=== PATIENT | male | born 1955 | race Caucasian/White ===

== ENCOUNTER 2018-09-05 06:45 | Emergency (ER) | payer OTHER ==
[2018-09-05] MEDS ORDERED: ONDANSETRON 4 MG/2 ML VIAL ONE ×2 (07:20→08:57)
[2018-09-05] MEDS ORDERED: NA CHLORIDE 0.9% 1,000 ML ONE ×2 (07:20→08:53)
[2018-09-05 07:58] LABS: Albumin 3.2 g/dL (3.4-5.0); Bilirubin Total 0.6 mg/dL (0.2-1.0); Potassium 5.2 mmol/L (3.5-5.1); Protein, Total 6.9 g/dL (6.4-8.2)
[2018-09-05 11:13] LABS: Albumin 2.9 g/dL (3.4-5.0); Bilirubin Total 0.4 mg/dL (0.2-1.0); Potassium 4.9 mmol/L (3.5-5.1); Protein, Total 6.5 g/dL (6.4-8.2)
--- NOTE | 2018-09-05 11:33 | ER ---
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 Transition of care: patient was not received from another setting of care. Onset of symptoms was September 05, 2018. Risk Assessment: Do you want to hurt yourself or someone else? Patient reports no desire to harm self or others. Initial Sepsis Screen: Does the patient meet any 2 criteria? No. Patient's initial sepsis screen is negative. Does the patient have a suspected source of infection? No. Patient's initial sepsis screen is negative. Care prior to arrival: None. 06:59 Method Of Arrival: Ambulatory bb 06:59 Acuity: ILEANA 3 bb 07:10 Note states pt has a urethral stricture and self-caths once a day. bb Historical: - Allergies: 07:05 No Known Allergies; bb - Home Meds: 07:05 mirtazapine 15 mg Oral TbDL 1 tab once daily [Active]; baclofen 10 mg Oral tab bb [Active]; lorazepam 0.5 mg Oral tab 1 tab [Active]; medrol dose pack [Active]; carvedilol 12.5 mg oral tab 1 tab 2 times per day [Active]; nitrofurantoin macrocrystal 50 mg Oral cap 1 cap once daily [Active]; Zofran (as hydrochloride) 4 mg oral tab [Active]; cranberry 500 mg oral cap [Active]; D-3 2000 IU daily [Active]; chemo [Active]; - PMHx: 07:05 head and neck cancer; bb - Immunization history:: Adult Immunizations up to date. - Social history:: Smoking status: Patient/guardian denies using tobacco, Patient/guardian denies using alcohol, street drugs, The patient lives with family. - Ebola Screening: : No symptoms or risks identified at this time. - Family history:: not pertinent. Screenin:10 Abuse screen: Denies threats or abuse. Nutritional screening: No deficits noted. em Tuberculosis screening: No symptoms or risk factors identified. Fall Risk None identified. Assessment: 07:07 General: Appears in no apparent distress. 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 Pain: Denies pain. Neuro: Level of Consciousness is awake, alert, obeys commands, Oriented to person, place, time, situation. Cardiovascular: Capillary refill < 3 seconds Patient's skin is warm and dry. Respiratory: Airway is patent Respiratory effort is even, unlabored, Respiratory pattern is regular, symmetrical, Breath sounds are clear bilaterally. GI: Abdomen is flat, Reports nausea, Patient currently denies vomiting. : Reports "straight caths self for past 30 years". EENT: Oral mucosa is moist. Throat is clear is pink. Derm: Skin is intact, Skin is pink, warm \\T\\ dry. Musculoskeletal: Range of motion: intact in all extremities. 07:07 Reassessment: I agree with assessment completed by Kin Gonzales LVN . aa5 09:12 Reassessment: Patient appears in no apparent distress at this time. Patient and/or em family updated on plan of care and expected duration. Pain level reassessed. Patient is alert, oriented x 3, equal unlabored respirations, skin warm/dry/pink. pending completion of 2nd NS bolus, will redraw labs Patient denies pain at this time. 10:59 Reassessment: Patient appears in no apparent distress at this time. Patient and/or em family updated on plan of care and expected duration. Pain level reassessed. Patient is alert, oriented x 3, equal unlabored respirations, skin warm/dry/pink. pending repeat labs, nausea improved Patient denies pain at this time. Patient states feeling better. 11:44 Reassessment: Patient appears in no apparent distress at this time. Patient and/or em family updated on plan of care and expected duration. Pain level reassessed. Patient is alert, oriented x 3, equal unlabored respirations, skin warm/dry/pink. Vital Signs: 07:05 BP 141 / 81; Pulse 60; Resp 16 S; Temp 98.2(O); Pulse Ox 97% on R/A; Weight 108.86 kg bb (R); Height 6 ft. 1 in. (185.42 cm) (R); Pain 0/10; 08:00 BP 132 / 79; Pulse 57; Resp 18; Pulse Ox 97% on R/A; Pain 0/10; em 09:14 BP 143 / 84; Pulse 58; Resp 18; Pulse Ox 99% on R/A; em 11:00 BP 138 / 80; Pulse 64; Resp 18; Pulse Ox 99% on R/A; Pain 0/10; em 11:45 BP 141 / 82; Pulse 61; Resp 18; Pulse Ox 99% on R/A; Pain 0/10; em 07:05 Body Mass Index 31.66 (108.86 kg, 185.42 cm) bb ED Course: 06:48 Patient arrived in ED. es 06:48 Basim Alexander DO is Private Physician. es 06:51 Filiberto Dumont, SURINDER is Primary Nurse. jb4 07:01 Triage completed. bb 07:02 Donald Cohen MD is Attending Physician. ma2 07:03 Kin Gonzales LVN is Primary Nurse. em 07:05 Arm band placed on Patient placed in an exam room, on a stretcher, on pulse oximetry. bb Family accompanied patient. 07:10 Patient has correct armband on for positive identification. Placed in gown. Call light em in reach. Adult w/ patient. 07:35 No provider procedures requiring assistance completed. Initial lab(s) drawn, by me, em sent to lab. Inserted saline lock: 20 gauge in left antecubital area, using aseptic technique. Blood collected. 11:44 IV discontinued, intact, bleeding controlled, No redness/swelling at site. Pressure em dressing applied. Administered Medications: 07:33 Drug: Zofran 4 mg Route: IVP; Site: left antecubital; aa5 08:47 Follow up: Response: No adverse reaction; Nausea unchanged em 07:34 Drug: NS 0.9% 1000 ml Route: IV; Rate: 1 bolus; Site: left antecubital; em 08:47 Follow up: IV Status: Completed infusion; IV Intake: 1000ml em 08:58 Drug: NS 0.9% 1000 ml Route: IV; Rate: 1 bolus; Site: left antecubital; em 10:48 Follow up: IV Status: Completed infusion; IV Intake: 1000ml em 08:58 Drug: Zofran 4 mg Route: IVP; Site: left antecubital; em 11:11 Follow up: Response: No adverse reaction; Nausea is decreased em Intake: 08:47 IV: 1000ml; Total: 1000ml. em 10:48 IV: 1000ml; Total: 2000ml. em Outcome: 11:32 Discharge ordered by . [email or web address] 11:44 Discharged to home ambulatory, with family. em 11:44 Condition: good 11:44 Discharge instructions given to patient, family, Instructed on discharge instructions, follow up and referral plans. Demonstrated understanding of instructions, follow-up care. 11:53 Patient left the ED. em Signatures: Eleni Buenrostro Edgar, PROFESSOR OF GERMAN PROFESSOR OF GERMAN em Stephenie Dejesus RN RN bb Toma Aguilar RN RN aa5 Filiberto Dumont RN RN jb4 Donald Cohen MD MD ma2
--- NOTE | 2018-09-05 11:33 | EDPHYS ---
Physician Documentation [facility] Name: Isai Becker Age: 62 yrs Sex: Male : 1955 Arrival Date: 09/05/2018 Time: 06:48 Bed 17 Private MD: Basim Alexander ED Physician Donald Cohen HPI: 09/05 07:08 This 62 yrs old Male presents to ER via Ambulatory with complaints of Cancer ma2 patient. 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 gets IVF after radiation every ma2 time.. today they did radiation but send him here for ivf and createnine check as mo MD available, thanks.. he has no symptoms.. tonsillar cancer x 1 year constant unchanged moderate . Onset: The symptoms/episode began/occurred gradually, 6 day(s) ago. Severity of symptoms: At their worst the symptoms were mild in the emergency department the symptoms are unchanged. Historical: - Allergies: 07:05 No Known Allergies; bb - Home Meds: 07:05 mirtazapine 15 mg Oral TbDL 1 tab once daily [Active]; baclofen 10 mg Oral tab bb [Active]; lorazepam 0.5 mg Oral tab 1 tab [Active]; medrol dose pack [Active]; carvedilol 12.5 mg oral tab 1 tab 2 times per day [Active]; nitrofurantoin macrocrystal 50 mg Oral cap 1 cap once daily [Active]; Zofran (as hydrochloride) 4 mg oral tab [Active]; cranberry 500 mg oral cap [Active]; D-3 2000 IU daily [Active]; chemo [Active]; - PMHx: 07:05 head and neck cancer; bb - Immunization history:: Adult Immunizations up to date. - Social history:: Smoking status: Patient/guardian denies using tobacco, Patient/guardian denies using alcohol, street drugs, The patient lives with family. - Ebola Screening: : No symptoms or risks identified at this time. - Family history:: not pertinent. ROS: 07:08 Constitutional: Negative for fever, chills, and weight loss, Cardiovascular: Negative ma2 for chest pain, palpitations, and edema, Respiratory: Negative for shortness of breath, cough, wheezing, and pleuritic chest pain, Abdomen/GI: Negative for abdominal pain, nausea, diarrhea, and constipation, Back: Negative for injury and pain, Allergy/Immunology: Negative for hives, rash, and allergies, Endocrine: Negative for neck swelling, polydipsia, polyuria, polyphagia, and marked weight changes. 07:08 All other systems are negative. Exam: 07:08 Constitutional: This is a well developed, well nourished patient who is awake, alert, ma2 and in no acute distress. Chest/axilla: Normal chest wall appearance and motion. Nontender with no deformity. No lesions are appreciated. Cardiovascular: Regular rate and rhythm with a normal S1 and S2. No gallops, murmurs, or rubs. Normal PMI, no JVD. No pulse deficits. Respiratory: Lungs have equal breath sounds bilaterally, clear to auscultation and percussion. No rales, rhonchi or wheezes noted. No increased work of breathing, no retractions or nasal flaring. Abdomen/GI: Soft, non-tender, with normal bowel sounds. No distension or tympany. No guarding or rebound. No evidence of tenderness throughout. MS/ Extremity: Pulses equal, no cyanosis. Neurovascular intact. Full, normal range of motion. 07:08 Head/Face: Normocephalic, atraumatic. ma2 Vital Signs: 07:05 BP 141 / 81; Pulse 60; Resp 16 S; Temp 98.2(O); Pulse Ox 97% on R/A; Weight 108.86 kg bb (R); Height 6 ft. 1 in. (185.42 cm) (R); Pain 0/10; 08:00 BP 132 / 79; Pulse 57; Resp 18; Pulse Ox 97% on R/A; Pain 0/10; em 09:14 BP 143 / 84; Pulse 58; Resp 18; Pulse Ox 99% on R/A; em 11:00 BP 138 / 80; Pulse 64; Resp 18; Pulse Ox 99% on R/A; Pain 0/10; em 11:45 BP 141 / 82; Pulse 61; Resp 18; Pulse Ox 99% on R/A; Pain 0/10; em 07:05 Body Mass Index 31.66 (108.86 kg, 185.42 cm) MDM: 07:02 Patient medically screened. ma2 07:08 Differential Diagnosis dehydration, pain, luisana, electrolyte disturbance . ma2 11:26 Data reviewed: vital signs, nurses notes. Counseling: I had a detailed discussion with [facility] the patient and/or guardian regarding: the historical points, exam findings, and any diagnostic results supporting the discharge/admit diagnosis, the presence of at least one elevated blood pressure reading (>120/80) during this emergency department visit, the need for outpatient follow up. 11:30 Response to treatment: the patient's symptoms have markedly improved after treatment. [facility] 09/05 07:07 Order name: CMP; Complete Time: 08:25 [facility] 09/05 08:51 Order name: CMP: at 10 am please; Complete Time: 11:15 [facility] Administered Medications: 07:33 Drug: Zofran 4 mg Route: IVP; Site: left antecubital; aa5 08:47 Follow up: Response: No adverse reaction; Nausea unchanged em 07:34 Drug: NS 0.9% 1000 ml Route: IV; Rate: 1 bolus; Site: left antecubital; em 08:47 Follow up: IV Status: Completed infusion; IV Intake: 1000ml em 08:58 Drug: NS 0.9% 1000 ml Route: IV; Rate: 1 bolus; Site: left antecubital; em 10:48 Follow up: IV Status: Completed infusion; IV Intake: 1000ml em 08:58 Drug: Zofran 4 mg Route: IVP; Site: left antecubital; em 11:11 Follow up: Response: No adverse reaction; Nausea is decreased em Disposition: 09/05/18 11:32 Discharged to Home. Impression: Dehydration. - Condition is Stable. - Discharge Instructions: Dehydration, Adult. - Medication Reconciliation Form, Thank You Letter, Antibiotic Education, Prescription Opioid Use form. - Follow up: Private Physician; When: Tomorrow; Reason: Continuance of care. Signatures: Dispatcher [employer] EDKin Anders, DRAWING IN MACHINE TENDER DRAWING IN MACHINE TENDER Stephenie Eubanks RN RN Toma Keating RN RN aa5 Donald Cohen MD MD wa2 Corrections: (The following items were deleted from the chart) 11:53 11:32 09/05/2018 11:32 Discharged to Home. Impression: Dehydration. Condition is em Stable. Forms are Medication Reconciliation Form, Thank You Letter, Antibiotic Education, Prescription Opioid Use. Follow up: Private Physician; When: Tomorrow; Reason: Continuance of care. ma2
== END 2018-09-05 11:53 | disposition home or self-care (01) ==
LOC: ER 06:45
DX: E86.0 Dehydration (principal); C09.9 Malignant neoplasm of tonsil, unspecified; Z85.89 Personal history of malignant neoplasm of other organs and systems
CPT/HCPCS: 36415; 80053; 96361; 96374; 99284; J2405; J7030

== ENCOUNTER 2018-09-06 07:46 | Emergency (ER) | payer OTHER ==
[2018-09-06] MEDS ORDERED: NA CHLORIDE 0.9% 1,000 ML ONE ×2 (08:34→09:26)
[2018-09-06 08:49] LABS: Absolute Lymphocytes (CBC) 0.4 K/uL (0.7-4.9); Absolute Monocytes 1.4 K/uL (0.1-1.3); Absolute Neutrophil 11.6 K/uL (1.8-8.0); Basophils % 0.1 % (0-1.3); Hematocrit 31.7 % (39.6-49.0); MCH 30.6 pg (27.0-35.0); MCV 91.1 fL (80-100); Monocytes % 10.3 % (3.3-12.3); RBC Red Blood Cell Count 3.48 M/uL (4.33-5.43)
[2018-09-06 09:33] LABS: Blood Morphology Comment NOT SEEN (NOT SEEN); Platelet Estimate DECR
[2018-09-06] MEDS ORDERED: ONDANSETRON 4 MG/2 ML VIAL ONE (10:26)
--- NOTE | 2018-09-06 10:38 | EDPHYS ---
Physician Documentation [facility] Name: Isai Becker Age: 63 yrs Sex: Male : 1955 Arrival Date: 09/06/2018 Time: 07:49 Bed 18 Private MD: Basim Alexander ED Physician Jeremie Wilson HPI: 09/06 09:38 This 63 yrs old Male presents to ER via Ambulatory with complaints of Lab jr8 Work. 09:38 Patient currently undergoing radiation and chemotherapy for tonsilar and basal tongue jr8 cancer. Had first round of chemo the other day. Was sent to ED yesterday for dehydration by PCP secondary to the chemo. Was told to come back today for another round of fluids. Denies any other problems at this time . Severity of symptoms: At their worst the symptoms were moderate in the emergency department the symptoms are unchanged. The patient has not experienced similar symptoms in the past. The patient has been recently seen by a physician:. Historical: - Allergies: 08:36 No Known Allergies; em - Home Meds: 08:04 baclofen 10 mg Oral tab [Active]; carvedilol 12.5 mg Oral tab 1 tab 2 times per day em [Active]; chemo [Active]; cranberry 500 mg Oral cap [Active]; D-3 2000 IU daily [Active]; lorazepam 0.5 mg Oral tab 1 tab [Active]; MEDROL DOSE PACK [Active]; mirtazapine 15 mg Oral TbDL 1 tab once daily [Active]; nitrofurantoin macrocrystal 50 mg Oral cap 1 cap once daily [Active]; Zofran (as hydrochloride) 4 mg Oral tab [Active]; - PMHx: 08:04 head and neck cancer; em - Immunization history:: Adult Immunizations up to date. - Social history:: Smoking status: Patient/guardian denies using tobacco. - Ebola Screening: : Patient negative for fever greater than or equal to 101.5 degrees Fahrenheit, and additional compatible Ebola Virus Disease symptoms Patient denies exposure to infectious person Patient denies travel to an Ebola-affected area in the 21 days before illness onset No symptoms or risks identified at this time. ROS: 09:38 Eyes: Negative for injury, pain, redness, and discharge, ENT: Negative for injury, jr8 pain, and discharge, Neck: Negative for injury, pain, and swelling, Cardiovascular: Negative for chest pain, palpitations, and edema, Respiratory: Negative for shortness of breath, cough, wheezing, and pleuritic chest pain, Abdomen/GI: Negative for abdominal pain, nausea, vomiting, diarrhea, and constipation, Back: Negative for injury and pain, MS/Extremity: Negative for injury and deformity, Skin: Negative for injury, rash, and discoloration, Neuro: Negative for headache, weakness, numbness, tingling, and seizure. Exam: 09:38 Eyes: Pupils equal round and reactive to light, extra-ocular motions intact. Lids and jr8 lashes normal. Conjunctiva and sclera are non-icteric and not injected. Cornea within normal limits. Periorbital areas with no swelling, redness, or edema. ENT: Nares patent. No nasal discharge, no septal abnormalities noted. Tympanic membranes are normal and external auditory canals are clear. Oropharynx with no redness, swelling, or masses, exudates, or evidence of obstruction, uvula midline. Mucous membranes moist. Neck: Trachea midline, no thyromegaly or masses palpated, and no cervical lymphadenopathy. Supple, full range of motion without nuchal rigidity, or vertebral point tenderness. No Meningismus. Cardiovascular: Regular rate and rhythm with a normal S1 and S2. No gallops, murmurs, or rubs. Normal PMI, no JVD. No pulse deficits. Respiratory: Lungs have equal breath sounds bilaterally, clear to auscultation and percussion. No rales, rhonchi or wheezes noted. No increased work of breathing, no retractions or nasal flaring. Abdomen/GI: Soft, non-tender, with normal bowel sounds. No distension or tympany. No guarding or rebound. No evidence of tenderness throughout. Back: No spinal tenderness. No costovertebral tenderness. Full range of motion. Skin: Warm, dry with normal turgor. Normal color with no rashes, no lesions, and no evidence of cellulitis. MS/ Extremity: Pulses equal, no cyanosis. Neurovascular intact. Full, normal range of motion. Neuro: Awake and alert, GCS 15, oriented to person, place, time, and situation. Cranial nerves II-XII grossly intact. Motor strength 5/5 in all extremities. Sensory grossly intact. Cerebellar exam normal. Normal gait. Vital Signs: 08:04 BP 134 / 77; Pulse 65; Resp 18; Pulse Ox 99% on R/A; Pain 0/10; em 08:32 Temp 98.6(O); em 09:30 BP 132 / 74; Pulse 67; Resp 16; Pulse Ox 99% on R/A; em 10:55 BP 131 / 70; Pulse 68; Resp 18; Pulse Ox 99% on R/A; Pain 0/10; em MDM: 07:52 Patient medically screened. jr8 09:38 Data reviewed: vital signs, nurses notes, old medical records, lab test result(s). Data jr8 interpreted: Pulse oximetry: on room air is 99 %. Interpretation: normal. Counseling: I had a detailed discussion with the patient and/or guardian regarding: the historical points, exam findings, and any diagnostic results supporting the discharge/admit diagnosis, lab results, the need for outpatient follow up, a family practitioner, to return to the emergency department if symptoms worsen or persist or if there are any questions or concerns that arise at home. Response to treatment: the patient's symptoms have markedly improved after treatment. ED course: labs improved since yesterday. Will continue to hydrate at home. Sees oncology on Sunday for follow up . 09/06 08:25 Order name: CBC with Diff; Complete Time: 09:37 em 09/06 08:25 Order name: BMP; Complete Time: 09:03 em 09/06 09:34 Order name: Manual Differential; Complete Time: 09:37 EDMS Administered Medications: 08:35 Drug: NS 0.9% 1000 ml Route: IV; Rate: 1 bolus; Site: left antecubital; em 09:20 Follow up: IV Status: Completed infusion; IV Intake: 1000ml em 09:25 Drug: NS 0.9% 1000 ml Route: IV; Rate: 1 bolus; Site: left antecubital; em 10:17 Follow up: IV Status: Completed infusion; IV Intake: 1000ml em 10:20 Drug: Zofran 4 mg Route: IVP; Site: left antecubital; tw2 10:55 Follow up: Response: No adverse reaction; Nausea is decreased em Disposition: 09/06/18 10:37 Discharged to Home. Impression: Dehydration. - Condition is Stable. - Discharge Instructions: Dehydration, Adult. - Medication Reconciliation Form, Thank You Letter, Antibiotic Education, Prescription Opioid Use form. - Follow up: Private Physician; When: 2 - 3 days; Reason: Recheck today's complaints, Continuance of care, Re-evaluation by your physician. - Problem is new. - Symptoms have improved. Addendum: 09/09/2018 08:08 Co-signature as Attending Physician, Jeremie Wilson MD I agree with the assessment and c barger plan of care. Signatures: Dispatcher [employer] Jeremie Watson MD MD cha Munoz, Edgar, CARD HAND CARD HAND em Robert Davidson PA PA jr8 Padma Romeo RN RN tw2 Corrections: (The following items were deleted from the chart) 09/06 10:56 10:37 09/06/2018 10:37 Discharged to Home. Impression: Dehydration. Condition is em Stable. Forms are Medication Reconciliation Form, Thank You Letter, Antibiotic Education, Prescription Opioid Use. Follow up: Private Physician; When: 2 - 3 days; Reason: Recheck today's complaints, Continuance of care, Re-evaluation by your physician. Problem is new. Symptoms have improved. jr8
--- NOTE | 2018-09-06 10:38 | ER ---
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 Transition of care: patient was not received from another setting of care. Onset of symptoms was September 02, 2018. Risk Assessment: Do you want to hurt yourself or someone else? Patient reports no desire to harm self or others. Initial Sepsis Screen: Does the patient meet any 2 criteria? No. Patient's initial sepsis screen is negative. Does the patient have a suspected source of infection? No. Patient's initial sepsis screen is negative. Care prior to arrival: None. 07:58 Method Of Arrival: Ambulatory em 08:06 Acuity: ILEANA 3 ss Triage Assessment: 08:04 General: Appears in no apparent distress. comfortable, Behavior is calm, cooperative. em Pain: Denies pain. Historical: - Allergies: 08:36 No Known Allergies; em - Home Meds: 08:04 baclofen 10 mg Oral tab [Active]; carvedilol 12.5 mg Oral tab 1 tab 2 times per day em [Active]; chemo [Active]; cranberry 500 mg Oral cap [Active]; D-3 2000 IU daily [Active]; lorazepam 0.5 mg Oral tab 1 tab [Active]; MEDROL DOSE PACK [Active]; mirtazapine 15 mg Oral TbDL 1 tab once daily [Active]; nitrofurantoin macrocrystal 50 mg Oral cap 1 cap once daily [Active]; Zofran (as hydrochloride) 4 mg Oral tab [Active]; - PMHx: 08:04 head and neck cancer; em - Immunization history:: Adult Immunizations up to date. - Social history:: Smoking status: Patient/guardian denies using tobacco. - Ebola Screening: : Patient negative for fever greater than or equal to 101.5 degrees Fahrenheit, and additional compatible Ebola Virus Disease symptoms Patient denies exposure to infectious person Patient denies travel to an Ebola-affected area in the 21 days before illness onset No symptoms or risks identified at this time. Screenin:36 Abuse screen: Denies threats or abuse. Nutritional screening: No deficits noted. em Tuberculosis screening: No symptoms or risk factors identified. Fall Risk None identified. Assessment: 08:04 General: Appears in no apparent distress. comfortable, Behavior is calm, cooperative, em Denies fever. Pain: Denies pain. Neuro: Level of Consciousness is awake, alert, obeys commands, Oriented to person, place, time, situation. Cardiovascular: Capillary refill < 3 seconds Patient's skin is warm and dry. Respiratory: Airway is patent Respiratory effort is even, unlabored, Respiratory pattern is regular, symmetrical. GI: Abdomen is flat, PEG tube in place, clamped. to gravity drainage. Site clean. Patient currently denies nausea, vomiting. : No signs and/or symptoms were reported regarding the genitourinary system. EENT: No signs and/or symptoms were reported regarding the EENT system. Derm: Skin is intact, Skin is pink, warm \T\ dry. Musculoskeletal: Range of motion: intact in all extremities. 09:00 Reassessment: Patient appears in no apparent distress at this time. Patient and/or em family updated on plan of care and expected duration. Pain level reassessed. Patient is alert, oriented x 3, equal unlabored respirations, skin warm/dry/pink. 10:15 Reassessment: Patient appears in no apparent distress at this time. Patient and/or em family updated on plan of care and expected duration. Pain level reassessed. Patient is alert, oriented x 3, equal unlabored respirations, skin warm/dry/pink. pr reports being nauseated, provider notified, new medication orders received. Vital Signs: 08:04 BP 134 / 77; Pulse 65; Resp 18; Pulse Ox 99% on R/A; Pain 0/10; em 08:32 Temp 98.6(O); em 09:30 BP 132 / 74; Pulse 67; Resp 16; Pulse Ox 99% on R/A; em 10:55 BP 131 / 70; Pulse 68; Resp 18; Pulse Ox 99% on R/A; Pain 0/10; em ED Course: 07:49 Patient arrived in ED. mr 07:49 Basim Alexander DO is Private Physician. mr 07:52 Robert Davidson PA is PHCP. jr8 07:52 Jeremie Wilson MD is Attending Physician. jr8 07:58 Kin Gonzales LVN is Primary Nurse. em 08:06 Triage completed. ss 08:06 Arm band placed on. ss 08:36 Patient has correct armband on for positive identification. Bed in low position. Call em light in reach. Adult w/ patient. Pulse ox on. NIBP on. 08:36 No provider procedures requiring assistance completed. Initial lab(s) drawn, by me, em sent to lab. Inserted saline lock: 20 gauge in left antecubital area, using aseptic technique. Blood collected. 10:56 IV discontinued, intact, bleeding controlled, No redness/swelling at site. Pressure em dressing applied. Administered Medications: 08:35 Drug: NS 0.9% 1000 ml Route: IV; Rate: 1 bolus; Site: left antecubital; em 09:20 Follow up: IV Status: Completed infusion; IV Intake: 1000ml em 09:25 Drug: NS 0.9% 1000 ml Route: IV; Rate: 1 bolus; Site: left antecubital; em 10:17 Follow up: IV Status: Completed infusion; IV Intake: 1000ml em 10:20 Drug: Zofran 4 mg Route: IVP; Site: left antecubital; tw2 10:55 Follow up: Response: No adverse reaction; Nausea is decreased em Intake: 09:20 IV: 1000ml; Total: 1000ml. em 10:17 IV: 1000ml; Total: 2000ml. em Outcome: 10:37 Discharge ordered by . jr8 10:56 Discharged to home ambulatory, with family. em 10:56 Condition: good 10:56 Discharge instructions given to patient, family, Instructed on discharge instructions, follow up and referral plans. Demonstrated understanding of instructions, follow-up care. 10:56 Patient left the ED. 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
== END 2018-09-06 10:56 | disposition home or self-care (01) ==
LOC: ER 07:46
DX: E86.0 Dehydration (principal); C02.9 Malignant neoplasm of tongue, unspecified; C09.9 Malignant neoplasm of tonsil, unspecified
CPT/HCPCS: 36415; 80048; 85025; 96361; 96374; 99284; J2405; J7030

== ENCOUNTER 2018-09-26 09:27 | Day surgery (SDC) | payer OTHER ==
--- OUTSIDE RECORDS SUMMARY | 2018-09-26 09:30 | XMS REPORT | Continuity of Care Document ---
:1955 Author Organization Interface Problems Problem Status Onset Classification Date Comments Source Date Reported LIVER MASS Active 09/03/20 [place] [id number] [address] ORALPHARNX Active 08/30/20 [facility] SQUAMOUS CELL 18 Medical CARCINOMA Center PEG TUBE Active 08/25/20 [facility] PLACEMENT 18 Medical 08/21/SPITTING Center BLOOD T DYSPHAGIA, Active 08/14/20 [facility] OROPHARYNGEAL Medical PHASE Center Medications Medication Details Route Status Patient Ordering Order Source Instructions Provider Date Allergies, Adverse Reactions, Alerts Substance Category Reaction Severity Reaction Status Date Comments Source type Reported Immunizations Immunization Date Given Site Status Last Updated Comments Source Results Order Results Value Reference Date Interpretation Comments Source Name Range Biopsy Biopsy Patient Name: MILI AGUAYO 09/09 - [facility] liver liver - [place] : 1955; Age: 63 years Male MR: [id number] Read by: Lucero Callaway MD Dictated Date/time: 09/09/18 11:08 Electronically Signed by: Lucero Callaway MD 09/09/18 11:10 FINAL REPORT PROCEDURE: 1. CT-guided biopsy of a liver lesion 2. Moderate sedation CLINICAL INFORMATION: Multiple liver masses, history of tonsillar cancer COMPARISON: Outside abdomen on 08/30/2018 CONSENT: The procedure, risks, benefits and alternatives were discussed with the patient and written informed consent was obtained. A "time out" was performed per protocol prior to the procedure. TECHNIQUE: CT imaging performed at this location utilizes radiation dose optimization techniques which include one or more of the following: -Automated exposure control -Adjustment of the mA and/or kV according to patient size -Use of iterative reconstruction technique -Radiation dose: 1267.62 mGy-cm joy operator helper: Dr. Callaway Preoperative diagnosis: Multiple liver masses, history of tonsillar cancer Postoperative diagnosis: Same Estimated blood loss: Minimal Moderate sedation: I supervised moderate sedation during this procedure. The patient was continuously monitored by a nurse using automated blood pressure , electrocardiogram, and pulse oximetry. [place] [facility] [place] is permanently stored in the hospital information system. The personal supervised moderate sedation time was 10 minutes. Medications administered: Versed 0.5 mg IV and Fentanyl 25 mcg IV. The patient was placed in a supine position on the CT table. Preprocedure CT demonstrated an ill-defined mass within the lateral left hepatic lobe. The right upper abdomen was prepped and draped with st erile technique and the skin was anesthetized with 1% lidocaine. Under CT guidance, a 17-gauge introducer needle was advanced into the lateral left hepatic lobe mass. Subsequently, 6 core biopsies (18-gauge, 2 cm) were obtained of this lesion using a coaxial techniqu e. The samples were sent for histopathology analysis. The needles were removed and sterile dressing applied. Postprocedure imaging demonstrated no immediate complication. Patient tolerated the procedure well and transferred to the PACU in stable condition. IMPRESSION: Successful CT-guided biopsy of a lateral left hepatic lobe mass. SL: [id number] Neck CTA Neck CTA EXAM: CT ANGIOGRAM OF THE NECK 08/[address] DATE: 08/25/2018 4:24 PM RESPIRATORY TECH Read by: Bradley Wilkerson MD Dictated Date/time: 08/25/18 17:05 Electronically Signed by: Bradley Wilkerson MD 08/25/18 17:13 FINAL REPORT INDICATION: - Tonsillar bleed, eval for extravasation COMPARISON: None TECHNIQUE: Rapid acquisition spiral CT images of the neck were obtained between the aortic arch and the skull base during intravenous infusion of iodinated contrast for the purposes of CT angiography. 3-D CT angio graphic images are created using MIP technique at the acquisition workstation. The source images are also presented for interpretation. IV contrast: 50 cc Visipaque 320 DLP: 604 mGy-cm FINDINGS: NECK CTA: Aortic arch: The great vessels originate from the aortic arch in the standard configuration. No origin stenosis is identified. The vertebral artery origins are patent bilaterally. Carotid arteries: There is no evidence of vascular injury. The cervical common carotid arteries and cervical internal carotid arteries have a normal course, caliber, and contour. There are areas of calcification at the carotid bifurcations. No hemodynamically s ignificant stenosis of the carotid bifurcations or internal carotid arteries is present by NASCET criteria. Vertebral arteries: The vertebral arteries have a normal course, caliber and contour. The visible intracranial vessels are unremarkable. The visible intracranial and extracranial venous structures are normal. There is a mass lesion arising from the right base of tongue extending into the glossopharyngeal sulcus, which measures approximately 2.5 x 2.5 x 3 cm. There is no involvement of the preepiglottic fat o r the piriform sinus. The pharyngeal tonsils appear to be unremarkable. The lingual artery courses mostly along the lateral margin of the mass. I do not see any pseudoaneurysm. There is a clearly metastatic lymph node at level 3 on the right measuring 13 mm in transverse diameter. There are other asymmetrically enlarged right level 2A and 2B nodes which likely represent metast atic adenopathy, but only measure 8 mm in diameter. 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 There is evidence of central venous hypertension with dilatation of the jugular veins and of the azygos vein. The lung apices are unremarkable. 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 No pseudoaneurysm or other vascular abnormality identified.. Abdomen Abdomen EXAM: XR ABDOMEN 2 VIEWS 08/25 - [facility] 2 views 2 views /2017 - Medical DX DX This report was dictated by a Pharmacy Buyer/Fellow. I have personally reviewed the images as Center well as the Resident's interpretation and agree with the findings. DATE: 08/25/2018 12:53 PM RESPIRATORY TECH Read by: Williams Lozano MD Resident: Williams Lozano MD Dictated Date/time: 08/25/18 14:07 Electronically Signed by: Clara Early MD 08/25/18 14:22 FINAL REPORT INDICATION: - G-tube study with contrast through G-tube. Pt had bleeding from G-tube site. ADDITIONAL INFORMATION: None. COMPARISON: None. TECHNIQUE: Cross-table lateral and supine abdominal radiographs. Enteric contrast was given via enteric tube. Enteric contrast: 40 mL of Omnipaque 300 FINDINGS: Gastrostomy tube: In expected position. Instillation of contrast reveals intraluminal position without evidence of extravasation. Other tubes, lines and hardware: None. Lower thorax: Unremarkable where visualized. Abdomen and bowel: Normal. No free air. No differential air fluid levels. Calcifications: No abnormal calcifications found. Bones and soft tissues: No acute abnormality. IMPRESSION: 1. Enteric tube in expected position with no contrast extravasation. UT SECTION: ER Vital Signs Vital Sign Value Date Comments Source Encounters Location Location Encounter Encounter Reason Attending ADM DC Status Source Details Type Number For Provider Date Date Visit Procedures Procedure Code Date Perfomer Comments Source
[2018-09-26] MEDS ORDERED: CEFAZOLIN 1GM (PREMIX IV) 1 GM/50 ML BAG ONE (10:13)
[2018-09-26] MEDS ORDERED: Ringers Lactate 1,000 ML IV ONE (10:13)
[2018-09-26 10:33] LABS: Absolute Lymphocytes (CBC) 1.4 K/uL (0.7-4.9); Absolute Monocytes 2.3 K/uL (0.1-1.3); Basophils % 0.4 % (0-1.3); Eosinophils % 0.6 % (0-4.4); Hematocrit 30.9 % (39.6-49.0); Lymphocytes % 13.1 % (15.3-44.8); MPV 8.9 fL (7.6-11.3); Monocytes % 21.2 % (3.3-12.3); RBC Red Blood Cell Count 3.43 M/uL (4.33-5.43)
[2018-09-26] MEDS ORDERED: NS 0.9% VIAL 20 ML ONE (10:58)
[2018-09-26] MEDS ORDERED: HEPARIN 5000 UNIT/ML 1 ML VIAL ONE (10:59)
[2018-09-26] MEDS ORDERED: LIDOCAINE 1% MPF 30 ML VIAL ONE (10:59)
[2018-09-26 11:07] LABS: Blood Morphology Comment NOT SEEN (NOT SEEN); Platelet Estimate ADEQ
[2018-09-26] MEDS ORDERED: FENTANYL CITR 100 MCG/2 ML ONE (11:48)
[2018-09-26] MEDS ORDERED: PROPOFOL 200 MG/20 ML VIAL IV ONE (11:48)
[2018-09-26] MEDS ORDERED: MIDAZOLAM HCL 2 MG/2 ML INJ ONE (11:49)
[2018-09-26] MEDS ORDERED: LIDOCAINE 1% MPF 5 ML VIAL ONE (11:49)
--- NOTE | 2018-09-26 12:53 | RAD REPORT ---
EXAM DESCRIPTION: RAD - Fluoroscopy <1 Hour - 09/26/2018 12:48 pm CLINICAL HISTORY: Venous catheter insertion. PORT A CATH PLACEMENT COMPARISON: No comparisons FINDINGS: Fluoroscopic imaging is submitted from placement of a venous catheter. Details of the pro cedure not available. Fluoroscopy time: 0.3 minutes
--- NOTE | 2018-09-26 13:17 | RAD REPORT ---
EXAM DESCRIPTION: RAD - Chest Single View - 09/26/2018 1:06 pm CLINICAL HISTORY: S/P PORT-A-CATH PLACEMENT Chest pain. COMPARISON: No comparisons FINDINGS: Portable technique limits examination quality. The lungs are grossly clear. The heart is normal in size. Right-sided venous catheter has tip in the SVC. No postprocedure pneumothorax. IMPRESSION: No postprocedure pneumothorax.
--- NOTE | 2018-09-27 03:54 | OP ---
Date of Procedure: 09/26/2018 Surgeon: Pete Chao MD Preoperative Diagnosis: Metastatic tongue and tonsil cancer. Postoperative Diagnosis: Metastatic tongue and tonsil cancer. Procedure: Right internal jugular Port-A-Cath placement and interpretation of fluoroscopy. Estimated Blood Loss: Minimal. Specimen: None. Findings: Normal anatomy. Anesthesia: MAC. Complications: None. Disposition: The patient tolerated the procedure in stable condition, taken to recovery in good gene ral condition. Description Of Procedure: The patient was brought to the OR and placed in the supine position. MAC anesthesia was began. The patient was prepped and draped in usual sterile fashion. Lidocaine 1% was infiltrated locally. Then, an 18-gauge needle was used to access the right internal jugular vein. Guidewire was passed. Position was confirmed with fluoroscopy. A 3-cm counterincision was made. Spann bcutaneous tissue was divided. Pocket was created. Tunneling device was used to tunnel the catheter between the 2 wounds and then Seldinger technique was used. Tip of the catheter was placed in the S VC under fluoroscopy, cut to appropriate size. The Port-A-Cath device was attached to the subcutaneo us tissue with 3-0 Vicryl. The Port-A-Cath device was flushed with heparin and packed with heparin w ith good blood flow. Then, 3-0 chromic was used to reapproximate the subcutaneous tissue and close t he skin. Sterile dressing was applied. The patient was awakened and taken to recovery in good gener al condition. Chest x-ray has been ordered. Discharge Note: The patient will go to day surgery and home when stable. Disposition: Home. Condition: Stable. Discharge Instructions: Resume home medications and diet. Activity as tolerated. No heavy lifting. Remove outer dressing in 2 days. Shower. Keep wound clean and dry. Keep Steri-Strips on at all t imes. Follow up in my office in 2 weeks. Call for appointment. Tylenol No. 3, 1 tablet p.o. q.4 p. r.n. pain. [facility]. NICCI/BOB Voice ID: [id number] Report ID: [id number]
== END 2018-09-26 14:15 | disposition home or self-care (01) ==
LOC: OR 09:27
PROVIDERS: ATTEND Surgery
PROC: 0JH60WZ Insertion of Totally Implantable Vascular Access Device into Chest Subcutaneous Tissue and Fascia, Open Approach (ICD-10-PCS; principal; 2018-09-26 11:00)
DX: C09.9 Malignant neoplasm of tonsil, unspecified (principal); C02.9 Malignant neoplasm of tongue, unspecified; C78.7 Secondary malignant neoplasm of liver and intrahepatic bile duct; Z80.0 Family history of malignant neoplasm of digestive organs; Z80.41 Family history of malignant neoplasm of ovary; Z82.49 Family history of ischemic heart disease and other diseases of the circulatory system
CPT/HCPCS: 36415; 71045; 76000; 85025; C1788; J0690; J1644; J2250; J2704; J3010

== ENCOUNTER 2018-09-28 07:36 | Emergency (ER) | payer OTHER ==
--- OUTSIDE RECORDS SUMMARY | 2018-09-28 07:38 | XMS REPORT | Continuity of Care Document ---
:1955 Author Organization Interface Problems Problem Status Onset Classification Date Comments Source Date Reported LIVER MASS Active 09/03/20 [place] [id number] [address] ORALPHARNX Active 08/30/20 [facility] SQUAMOUS CELL 18 Medical CARCINOMA Center PEG TUBE Active 08/25/20 [facility] PLACEMENT 18 Medical 08/21/SPITTING Center BLOOD T DYSPHAGIA, Active 08/14/20 [facility] OROPHARYNGEAL Medical PHASE Center Medications Medication Details Route Status Patient Ordering Order Source Instructions Provider Date Allergies, Adverse Reactions, Alerts Substance Category Reaction Severity Reaction Status Date Comments Source type Reported Immunizations Immunization Date Given Site Status Last Updated Comments Source Results Order Results Value Reference Date Interpretation Comments Source Name Range Biopsy Biopsy Patient Name: MILI AGUAYO 09/09 - [facility] liver liver - [place] : 1955; Age: 63 years Male MR: [id number] Read by: Lucero Callaway MD Dictated Date/time: [...] iterative reconstruction technique -Radiation dose: 1267.62 mGy-cm double needle operator: Dr. Callaway Preoperative diagnosis: Multiple liver masses, history of tonsillar cancer Postoperative diagnosis: Same Estimated blood loss: Minimal Moderate sedation: I supervised moderate sedation during this procedure. The patient was continuously monitored by a nurse using automated blood pressure , electrocardiogram, and pulse oximetry. [place] [facility] [place] permanently stored in [...] a lateral left hepatic lobe mass. SL: [id number] Neck CTA Neck CTA EXAM: CT ANGIOGRAM OF THE NECK 08/[address] DATE: 08/25/2018 4:24 PM CHIEF REVENUE OFFICER Read by: Bradley Wilkerson MD Dictated Date/time: [...] EXAM: XR ABDOMEN 2 VIEWS 08/25 - [facility] 2 views 2 views /2017 - Medical DX DX This report was dictated by a Aircraft Charter Dispatcher/Fellow. I have personally reviewed the images as Center well as the Resident's interpretation and agree with the findings. DATE: 08/25/2018 12:53 PM CHIEF REVENUE OFFICER Read by: Williams Lozano MD Resident: Williams [...]
[2018-09-28 08:32] LABS: Absolute Lymphocytes (CBC) 1.4 K/uL (0.7-4.9); Absolute Monocytes 1.6 K/uL (0.1-1.3); Absolute Neutrophil 6.4 K/uL (1.8-8.0); Basophils % 0.4 % (0-1.3); Eosinophils % 1.3 % (0-4.4); Hematocrit 32.6 % (39.6-49.0); Lymphocytes % 14.4 % (15.3-44.8); MCH 29.9 pg (27.0-35.0); MCV 89.2 fL (80-100); MPV 7.9 fL (7.6-11.3); Monocytes % 16.7 % (3.3-12.3); RBC Red Blood Cell Count 3.66 M/uL (4.33-5.43)
[2018-09-28 09:04] LABS: BUN Blood Urea Nitrogen 15 mg/dL (7-18); Bicarbonate 27 mmol/L (21-32); Glucose Level 90 mg/dL (74-106); NT PRO-BNP 150 pg/mL (<125); Potassium 4.1 mmol/L (3.5-5.1); Sodium Level 139 mmol/L (136-145)
[2018-09-28 09:27] LABS: Blood Morphology Comment NOT SEEN (NOT SEEN); Platelet Estimate INCR; Urine White Blood Cell Casts OK
--- NOTE | 2018-09-28 09:46 | RAD REPORT ---
EXAM DESCRIPTION: US - Extremity Venous Uni Ltd - 09/28/2018 9:28 am CLINICAL HISTORY: Left leg pain and swelling COMPARISON: None. TECHNIQUE: Real-time sonographic evaluation of the left lower extremity deep venous system was perfo rmed. FINDINGS: Normal compressibility, flow augmentation, phasic flow and spontaneous flow are identified in the left lower extremity common femoral, superficial femoral, popliteal and posterior tibial vein s. No intraluminal filling defects seen. IMPRESSION: No DVT in the left lower extremity.
--- NOTE | 2018-09-28 09:59 | ER ---
Nurse's Notes [facility] Name: Isai Becker Age: 63 yrs Sex: Male : 1955 Arrival Date: 09/28/2018 Time: 07:39 Bed 7 Private MD: Diagnosis: Edema, unspecified Presentation: 09/28 07:50 Presenting complaint: Patient states: L lower extremity swelling x 3 days. Pt reports ss tenderness when pain first began, but now has no pain to the affected extremity. Transition of care: patient was not received from another setting of care. Onset of symptoms was September 25, 2018. Risk Assessment: Do you want to hurt yourself or someone else? Patient reports no desire to harm self or others. Initial Sepsis Screen: Does the patient meet any 2 criteria? No. Patient's initial sepsis screen is negative. Does the patient have a suspected source of infection? No. Patient's initial sepsis screen is negative. Care prior to arrival: None. 07:50 Method Of Arrival: Ambulatory ss 07:50 Acuity: ILEANA 3 ss Historical: - Allergies: 07:53 No Known Allergies; ss - Home Meds: 09:11 baclofen 10 mg Oral tab [Active]; carvedilol 12.5 mg Oral tab 1 tab 2 times per day ph [Active]; chemo [Active]; cranberry 500 mg Oral cap [Active]; D-3 2000 IU daily [Active]; lorazepam 0.5 mg Oral tab 1 tab [Active]; MEDROL DOSE PACK [Active]; mirtazapine 15 mg Oral TbDL 1 tab once daily [Active]; nitrofurantoin macrocrystal 50 mg Oral cap 1 cap once daily [Active]; Zofran (as hydrochloride) 4 mg Oral tab [Active]; - PMHx: 09:11 head and neck cancer; ph - Immunization history:: Adult Immunizations up to date. - Social history:: Smoking status: Patient/guardian denies using tobacco. - Ebola Screening: : Patient denies exposure to infectious person Patient denies travel to an Ebola-affected area in the 21 days before illness onset. Screenin:09 Abuse screen: Denies threats or abuse. Denies injuries from another. Nutritional ph screening: No deficits noted. Tuberculosis screening: No symptoms or risk factors identified. Fall Risk None identified. Assessment: 07:59 General: Appears in no apparent distress. comfortable, Behavior is calm, cooperative, ph appropriate for age, Denies fever, feeling ill. 08:00 Pain: Denies pain. Neuro: Level of Consciousness is awake, alert, obeys commands, ph Oriented to person, place, time, situation. Cardiovascular: Denies chest pain, lightheadedness, nausea, shortness of breath, Capillary refill < 3 seconds in bilateral fingers Patient's skin is warm and dry. Port-o-cath noted to L upper chest w/ dressing in place, reports having it placed last by Dr Chao. Pulses are palpable in right dorsalis pedis artery and left dorsalis pedis artery Edema is 1+ to left knee, left midcalf and left ankle. Respiratory: Airway is patent Respiratory effort is even, unlabored, Respiratory pattern is regular, symmetrical, Denies shortness of breath. GI: Abdomen is round non-distended, PEG tube in place, Site clean. Patient currently denies abdominal pain, nausea, vomiting. Derm: Skin is intact, is healthy with good turgor, Skin is pink, warm \T\ dry. Musculoskeletal: Circulation, motion, and sensation intact. Range of motion: intact in all extremities. 09:00 Reassessment: Patient appears in no apparent distress at this time. Patient and/or ph family updated on plan of care and expected duration. Pain level reassessed. Patient is alert, oriented x 3, equal unlabored respirations, skin warm/dry/pink. Pt resting quietly, awaiting lab and radiology results Patient denies pain at this time. 10:00 Reassessment: Patient appears in no apparent distress at this time. Patient and/or ph family updated on plan of care and expected duration. Pain level reassessed. Patient is alert, oriented x 3, equal unlabored respirations, skin warm/dry/pink. Vital Signs: 07:53 BP 122 / 75; Pulse 72; Resp 15; Temp 97.4(TE); Pulse Ox 100% on R/A; Weight 102.06 kg; ss Height 6 ft. 1 in. (185.42 cm); Pain 0/10; 09:05 BP 112 / 65; Pulse 75; Resp 18; Pulse Ox 100% on R/A; ph 10:00 BP 114 / 68; Pulse 74; Resp 18; Temp 97.8; Pulse Ox 99% on R/A; ph 07:53 Body Mass Index 29.68 (102.06 kg, 185.42 cm) ED Course: 07:39 Patient arrived in ED. ss 07:40 Josi Valdez, RN is Primary Nurse. ph 07:41 Jeremie Ferrell PA is PHCP. cp 07:41 Frederick Del Angel MD is Attending Physician. cp 07:52 Triage completed. ss 07:53 Arm band placed on right wrist. 08:10 Initial lab(s) drawn, by me, sent to lab. Inserted saline lock: 22 gauge in right ph antecubital area, using aseptic technique. Blood collected. 08:18 EKG done, by ED staff, reviewed by Jeremie BEE. [facility] 08:56 Ultrasound completed. Patient tolerated well. Note: neg dvt prelim. sg3 09:09 Patient has correct armband on for positive identification. Placed in gown. Bed in low ph position. Call light in reach. Side rails up X 1. Pulse ox on. NIBP on. Warm blanket given. 09:18 US Extremity Venous Unilateral Ltd In Process Unspecified. EDMS 10:41 No provider procedures requiring assistance completed. IV discontinued, intact, ph bleeding controlled, No redness/swelling at site. Pressure dressing applied. Administered Medications: No medications were administered Outcome: 09:58 Discharge ordered by MD. cp 10:41 Discharged to home via wheelchair, with significant other. ph 10:41 Condition: good 10:41 Discharge instructions given to patient, significant other, Instructed on discharge instructions, follow up and referral plans. Demonstrated understanding of instructions, follow-up care. 10:43 Patient left the ED. Signatures: Dispatcher [employer] EDMS Mari Dallas RN RN Josi Valdez, RN RN ph Jeremie Ferrell PA PA cp Herrera, Deanna 3 Niki Solomon 3 Corrections: (The following items were deleted from the chart) 09:09 08:52 General: Appears in no apparent distress. comfortable, Behavior is calm, ph cooperative, appropriate for age, Reports ph
--- NOTE | 2018-09-28 09:59 | EDPHYS ---
Physician Documentation [facility] Name: Isai Becker Age: 63 yrs Sex: Male : 1955 Arrival Date: 09/28/2018 Time: 07:39 Bed 7 Private MD: ED Physician Frederick Del Angel HPI: 09/28 07:56 This 63 yrs old Male presents to ER via Ambulatory with complaints of left cp lower leg swelling. 07:56 The patient presents with swelling. The complaints affect the left lower leg. Context: cp resulted from an unknown cause, the patient can fully bear weight, the patient is able to ambulate. Onset: The symptoms/episode began/occurred 3 day(s) ago. 07:56 Associated signs and symptoms: Pertinent negatives calf tenderness, fever, numbness, cp warmth, shortness of breath, chest pain. 07:56 Treatment prior to arrival includes: elevation of the extremity. Severity of symptoms: cp in the emergency department the symptoms have improved, mildly. Historical: - Allergies: 07:53 No Known Allergies; ss - Home Meds: 09:11 baclofen 10 mg Oral tab [Active]; carvedilol 12.5 mg Oral tab 1 tab 2 times per day ph [Active]; chemo [Active]; cranberry 500 mg Oral cap [Active]; D-3 2000 IU daily [Active]; lorazepam 0.5 mg Oral tab 1 tab [Active]; MEDROL DOSE PACK [Active]; mirtazapine 15 mg Oral TbDL 1 tab once daily [Active]; nitrofurantoin macrocrystal 50 mg Oral cap 1 cap once daily [Active]; Zofran (as hydrochloride) 4 mg Oral tab [Active]; - PMHx: 09:11 head and neck cancer; ph - Immunization history:: Adult Immunizations up to date. - Social history:: Smoking status: Patient/guardian denies using tobacco. - Ebola Screening: : Patient denies exposure to infectious person Patient denies travel to an Ebola-affected area in the 21 days before illness onset. ROS: 08:03 Constitutional: Negative for body aches, chills, fever, poor PO intake. cp 08:03 Eyes: Negative for injury, pain, redness, and discharge. cp 08:03 ENT: Negative for drainage from ear(s), ear pain, sore throat, difficulty swallowing, difficulty handling secretions. 08:03 Cardiovascular: Positive for edema, Negative for chest pain, palpitations. 08:03 Respiratory: Negative for cough, dyspnea on exertion, orthopnea, shortness of breath, wheezing. 08:03 Abdomen/GI: Negative for abdominal pain, nausea, vomiting, and diarrhea, constipation, anorexia, black/tarry stool, rectal bleeding. 08:03 Back: Negative for pain at rest, pain with movement, radiated pain. 08:03 : Negative for urinary symptoms, flank pain. 08:03 Skin: Negative for cellulitis, rash. 08:03 Neuro: Negative for altered mental status, dizziness, headache, syncope, near syncope, weakness. 08:03 All other systems are negative. Exam: 08:10 Constitutional: The patient appears in no acute distress, alert, awake, cp non-diaphoretic, non-toxic, well developed, well nourished. 08:10 Head/Face: Normocephalic, atraumatic. cp 08:10 Eyes: Periorbital structures: appear normal, Conjunctiva: normal, no exudate, no injection, Sclera: no appreciated abnormality, Lids and lashes: appear normal, bilaterally. 08:10 ENT: External ear(s): are unremarkable, Nose: is normal, Mouth: Lips: moist, Oral mucosa: pink and intact, moist, Posterior pharynx: is normal, airway is patent, no erythema, no exudate. 08:10 Neck: ROM/movement: is normal, is supple, without pain, no range of motions limitations, no nuchal rigidity. 08:10 Chest/axilla: Inspection: normal, Palpation: is normal, no crepitus, no tenderness. 08:10 Cardiovascular: Rate: normal, Rhythm: regular, Edema: 1+ edema to level of left midcalf and left ankle, JVD: is not appreciated. 08:10 Respiratory: the patient does not display signs of respiratory distress, Respirations: normal, no use of accessory muscles, no retractions, no splinting, no tachypnea, labored breathing, is not present, Breath sounds: are clear throughout, no decreased breath sounds, no stridor, no wheezing. 08:10 Abdomen/GI: Inspection: abdomen appears normal, Palpation: abdomen is soft and non-tender, in all quadrants. 08:10 Back: pain, is absent, ROM is normal. 08:10 Musculoskeletal/extremity: Exam is negative for bony tenderness, decreased range of motion, deformity, injury. 08:10 Skin: cellulitis, is not appreciated, no rash present. 08:10 Neuro: Orientation: to person, place \T\ time. Mentation: is normal, Cerebellar function: is grossly normal, Motor: moves all fours, strength is normal, Sensation: is normal. 08:13 ECG was reviewed by the Attending Physician. cp Vital Signs: 07:53 BP 122 / 75; Pulse 72; Resp 15; Temp 97.4(TE); Pulse Ox 100% on R/A; Weight 102.06 kg; ss Height 6 ft. 1 in. (185.42 cm); Pain 0/10; 09:05 BP 112 / 65; Pulse 75; Resp 18; Pulse Ox 100% on R/A; ph 10:00 BP 114 / 68; Pulse 74; Resp 18; Temp 97.8; Pulse Ox 99% on R/A; ph 07:53 Body Mass Index 29.68 (102.06 kg, 185.42 cm) ss MDM: 07:41 Patient medically screened. cp 09:55 Data reviewed: vital signs, nurses notes, lab test result(s), EKG, radiologic studies, cp ultrasound. 09:55 Differential diagnosis: DVT, cellulitis, dependent edema. Test interpretation: by ED cp physician or midlevel provider: ECG. Counseling: I had a detailed discussion with the patient and/or guardian regarding: the historical points, exam findings, and any diagnostic results supporting the discharge/admit diagnosis, lab results, radiology results, the need for outpatient follow up, a family practitioner, to return to the emergency department if symptoms worsen or persist or if there are any questions or concerns that arise at home. 09/28 08:00 Order name: CBC with Diff; Complete Time: 09:42 cp 09/28 09:42 Interpretation: Normal except: RBC 3.66; HGB 11.0; HCT 32.6; PLT 432; MPV 7.9; LYM% cp 14.4; MN% 16.7; MNA 1.6. 09/28 08:00 Order name: BMP; Complete Time: 09:17 cp 09/28 08:00 Order name: US Extremity Venous Unilateral Ltd; Complete Time: 09:47 cp 09/28 09:47 Interpretation: Report reviewed. cp 09/28 08:00 Order name: EKG; Complete Time: 08:00 cp 09/28 08:00 Order name: BNP; Complete Time: 09:17 cp 09/28 09:17 Interpretation: Abnormal: NT PRO-BNP 150. cp 09/28 08:38 Order name: CBC Smear Scan; Complete Time: 09:42 EDSD 09/28 08:00 Order name: EKG - Nurse/Tech; Complete Time: 08:20 EC:13 Rate is 75 beats/min. Rhythm is regular. TX interval is normal. QRS interval is normal. cp QT interval is normal. T waves are Inverted in lead III. Interpreted by me. Reviewed by me. Administered Medications: No medications were administered Disposition: 09/29 07:44 Co-signature as Attending Physician, Frederick Del Angel MD. Disposition: 09/28/18 09:58 Discharged to Home. Impression: Edema, unspecified. - Condition is Stable. - Discharge Instructions: Edema. - Medication Reconciliation Form, Thank You Letter, Antibiotic Education, Prescription Opioid Use form. - Follow up: Private Physician; When: 2 - 3 days; Reason: Recheck today's complaints. - Problem is new. - Symptoms have improved. Signatures: Dispatcher [employer] EDMari Bernabe RN RN ss Hall, Patricia, RN RN ph Jeremie Ferrell, CRISTAL PA Frederick Calle MD MD Corrections: (The following items were deleted from the chart) 09/28 09:42 09:17 Normal except: RBC 3.66; HGB 11.0; HCT 32.6; PLT 432; MPV 7.9; LYM% 14.4; MN% cp 16.7. cp 10:43 09:58 09/28/2018 09:58 Discharged to Home. Impression: Edema, unspecified. Condition is ss Stable. Forms are Medication Reconciliation Form, Thank You Letter, Antibiotic Education, Prescription Opioid Use. Follow up: Private Physician; When: 2 - 3 days; Reason: Recheck today's complaints. Problem is new. Symptoms have improved. cp
--- NOTE | 2018-09-28 15:16 | EKG ---
Test Date: 2018-09-28 Test Time: 08:11:33 Sheet Layer: LEANDRO MEASUREMENT RESULTS: Intervals: Rate: 75 HI: 182 QRSD: 80 QT: 360 QTc: 402 Grass Range: P: 40 HI: 182 QRS: 45 T: 27 INTERPRETIVE STATEMENTS: Normal sinus rhythm Normal ECG No previous ECG available for comparison Electronically Signed On 09-28-18 15:15:59 BUSINESS ANALYTICS MANAGER by Kamran Matthews
== END 2018-09-28 10:43 | disposition home or self-care (01) ==
LOC: ER 07:36
DX: R60.9 Edema, unspecified (principal); Z85.89 Personal history of malignant neoplasm of other organs and systems
CPT/HCPCS: 36415; 80048; 83880; 85025; 93005; 93971; 99284

== ENCOUNTER 2019-01-09 16:32 | Inpatient (IN) | payer OTHER ==
--- OUTSIDE RECORDS SUMMARY | 2019-01-09 16:35 | XMS REPORT | Continuity of Care Document ---
:1955 Author Organization Interface Problems Problem Status Onset Classification Date Comments Source Date Reported LABS / FU Active 11/29/[address] PDL 1 Active 09/09/20 [place] [id number] [place] LIVER MASS Active 09/03/20 [place] [address] [place] ORALPHARNX Active 08/30/20 [facility] SQUAMOUS CELL Medical CARCINOMA Center PEG TUBE Active 08/25/20 [facility] PLACEMENT Medical 08/21/SPITTING Center BLOOD T DYSPHAGIA, Active 08/14/20 [facility] OROPHARYNGEAL [address] [place] [address] PHASE Center Cancer Active Problem 01/02/[address] [facility] Simple obesity Active Problem 01/02/[address] 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 [facility] MALIG NEOPLASM OF [place] NODES OF Medications Medication Details Route Status Patient Ordering Order Source Instructions Provider Date Esomeprazole 20 20 mg=1 Active 12/02/19 [facility] MG Enteric cap, PO, 19 Medical Coated Capsule Daily, # Center [Nexium] 30 cap, 0 Refill(s) MAGNESIUM PO, BID, 0 Active 12/02/19 [facility] GLUCONATE Refill(s) 19 [facility] Center Allergies, Adverse Reactions, Alerts Substance Category Reaction Severity Reaction Status Date Comments Source type Reported Immunizations Immunization Date Given Site Status Last Updated Comments Source Results Order Results Value Reference Date Interpretation Comments Source Name Range Biopsy Biopsy Patient Name: MILI AGUAYO 09/09 - [facility] liver VR liver - [place] : 1955; Age: 63 years Male MR: [id number] Read by: Lucero Callaway MD Dictated Date/time: 09/09/18 11:08 Electronically Signed by: Lucero Callaway MD 09/09/18 11:10 FINAL REPORT PROCEDURE: 1. CT-guided biopsy of a liver lesion 2. Moderate sedation CLINICAL INFORMATION: Multiple liver masses, history of tonsillar cancer COMPARISON: Outside MR abdomen on 08/30/2018 CONSENT: The procedure, risks, [...] iterative reconstruction technique -Radiation dose: 1267.62 mGy-cm buckshot swage operator: Dr. Callaway Preoperative diagnosis: Multiple liver masses, history of tonsillar cancer Postoperative diagnosis: Same Estimated blood loss: Minimal Moderate sedation: I supervised moderate sedation during this procedure. The patient was continuously monitored by a nurse using automated blood pressure , electrocardiogram, and pulse oximetry. The mod erate sedation record is permanently stored in [...] a lateral left hepatic lobe mass. SL: [id number] Neck CTA Neck CTA EXAM: CT ANGIOGRAM OF THE NECK 08/[address] DATE: 08/25/2018 4:24 PM INVESTIGATOR [employer]UE Read by: Bradley Wilkerson MD Dictated Date/time: [...] EXAM: XR ABDOMEN 2 VIEWS 08/25 - [facility] 2 views 2 views /2017 - Medical DX DX This report was dictated by a Commercial Center Manager/Fellow. I have personally reviewed the images as Center well as the Resident's interpretation and agree with the findings. DATE: 08/25/2018 12:53 PM INVESTIGATOR [employer] Read by: Williams Lozano MD Resident: Williams [...] Signs Vital Sign Value Date Comments Source Height 184.2 cm 12/02/2018 [facility] BMI Calculated 31.18 12/02/2018 [facility] Weight 105.8 12/02/2018 [facility] Temperature Oral (F) 97.4 F 12/02/2018 [facility] Respitory Rate 20 12/02/2018 [facility] Heart Rate 76 12/02/2018 [facility] Systolic (mm Hg) 144 12/02/2018 [facility] Diastolic (mm Hg) 83 12/02/2018 [facility] Encounters Location Location Encounter Encounter Reason Attending ADM DC Status Source Details Type Number For Provider Date Date Visit Oncology Recurring [id number] Tate Dot 12/02 01/01 [facility] [id number] [place] 12/03 12/04 [place] Rea /2018 [facility] Procedures Procedure Code Date Perfomer Comments Source Gastrostomy [id number] [facility] Knee replacement [id number] [facility] Radiation therapy [id number] [facility] Urethral operation [id number] [facility] Gastrostomy [id number] [facility] Knee replacement [id number] [facility] Radiation therapy [id number] [facility] Urethral operation [id number] [facility]
[2019-01-09 18:38] LABS: Absolute Lymphocytes (CBC) 1.3 K/uL (0.7-4.9); Absolute Monocytes 1.3 K/uL (0.1-1.3); Absolute Neutrophil 5.2 K/uL (1.8-8.0); Basophils % 1.2 % (0-1.3); Eosinophils % 2.9 % (0-4.4); Hematocrit 33.8 % (39.6-49.0); Lymphocytes % 16.4 % (15.3-44.8); MPV 9.7 fL (7.6-11.3); Monocytes % 15.4 % (3.3-12.3); RBC Red Blood Cell Count 3.64 M/uL (4.33-5.43)
[2019-01-09 18:57] LABS: Potassium 4.6 mmol/L (3.5-5.1)
[2019-01-09 19:15] LABS: Anisocytosis SLIGHT; Blood Morphology Comment NOTED (NOT SEEN); Platelet Estimate DECR
[2019-01-09 19:16] LABS: Target Cells FEW
--- NOTE | 2019-01-09 19:49 | RAD REPORT ---
EXAM DESCRIPTION: CT - Thorax W/ Con - 01/09/2019 7:24 pm CLINICAL HISTORY: Right shoulder pain x2 days, bruising to the right flank COMPARISON: CT chest and abdomen imaging November 2018 TECHNIQUE: Dynamically enhanced 5 mm thick images of the chest were obtained during administration o f 100 mL non-ionic IV contrast. All CT scans are performed using dose optimization technique as appropriate and may include automated exposure control or mA/KV adjustment according to patient size. FINDINGS: No new mass or infiltrate in the lung parenchyma. Two small right lower lobe pulmonary nod ules previously detailed are stable. Minimal scarring changes are present. No pleural effusion or ple ural thickening. No pneumothorax. Coronary artery calcifications are present. No pericardial thickeni ng or effusion. No abnormal mediastinal or hilar mass or lymphadenopathy seen. Limited imaging of the upper abdomen shows a heterogeneous attenuation pattern throughout the liver p arenchyma. Small amount of ascites is present. Heterogeneous poorly demarcated low-density lesion in the posterior right lobe. Patient has known hepatic metastatic disease. This study is not adequate fo r evaluation of growth for improvement. Right-sided Port-A-Cath is in place. No abnormality in the tissue surrounding the Port-A-Cath. Patien t has previously detailed bony metastatic disease. Sclerotic bone changes are stable over the short i nterval from the prior CT study. Extensive hemorrhagic changes are present in the fatty tissues of the right axilla. Right subclavian artery enhances normally. No extravasation of contrast from the arterial tree. Right axillary vein is not opacified to assess any venous side extravasation. There is significant enlargement of the subsc apularis muscle belly from probable intramuscular hemorrhage. Deltoid musculature is thickened. Pecto ralis muscles are not abnormally enlarged. Teres minor and major muscles also thickened. No trauma hi story is noted. This may be spontaneous hemorrhagic change due to anticoagulation therapy or malignan cy related coagulation abnormality. IMPRESSION: Significant hemorrhagic changes involving the right axillary fatty tissues and right ana ulder musculature. Findings extend inferiorly along the latissimus dorsi musculature. No extravasation of contrast from the axillary artery. The axillary vein is not opacified by contrast on this examination so no venous side assessment of active extravasation can be made. No trauma history is indicated. This may be spontaneous hemorrhage due to anticoagulation therapy or malignancy related coagulation abnormality. No abnormalities identified regarding the Port-A-Cath. No mediastinal, hilar or lung parenchymal acute process.
[2019-01-09 20:45] LABS: Absolute Lymphocytes (CBC) 1.6 K/uL (0.7-4.9); Absolute Monocytes 1.2 K/uL (0.1-1.3); Absolute Neutrophil 5.6 K/uL (1.8-8.0); Basophils % 0.8 % (0-1.3); Eosinophils % 3.2 % (0-4.4); Lymphocytes % 18.4 % (15.3-44.8); MPV 8.4 fL (7.6-11.3); Monocytes % 13.8 % (3.3-12.3); RBC Red Blood Cell Count 3.08 M/uL (4.33-5.43)
[2019-01-09 21:10] LABS: Blood Morphology Comment NOTED (NOT SEEN); Platelet Estimate DECR; Platelets, Giant NOTED; Target Cells 1+; Urine White Blood Cell Casts OK
[2019-01-09] MEDS ORDERED: ONDANSETRON 4 MG/2 ML VIAL IV PRN (21:40)
--- NOTE | 2019-01-09 21:45 | ER ---
Nurse's Notes [facility] Name: Isai Becker Age: 63 yrs Sex: Male : 1955 Arrival Date: 01/09/2019 Time: 16:35 Bed 18 Private MD: Basim Alexander Diagnosis: Spontaneous Hematoma Right Chest Wall ;Anemia Presentation: 01/09 16:43 Presenting complaint: Right shoulder pain x 2 days, bruising on right flank today. Pt hb contacted Dr. Chaudhary, told to come to ED, concerned there may be an issue with his port a cath. Transition of care: patient was not received from another setting of care. Onset of symptoms was January 07, 2019. Risk Assessment: Do you want to hurt yourself or someone else? Patient reports no desire to harm self or others. Care prior to arrival: None. 16:43 Method Of Arrival: Ambulatory 16:43 Acuity: ILEANA 3 hb 18:06 Initial Sepsis Screen: Does the patient meet any 2 criteria? No. Patient's initial ph sepsis screen is negative. Does the patient have a suspected source of infection? No. Patient's initial sepsis screen is negative. Historical: - Allergies: 16:46 No Known Allergies; hb - Home Meds: 16:46 baclofen 10 mg Oral tab [Active]; chemo [Active]; D-3 2000 IU daily [Active]; lorazepam hb 0.5 mg Oral tab 1 tab [Active]; mirtazapine 15 mg Oral TbDL 1 tab once daily [Active]; nitrofurantoin macrocrystal 50 mg Oral cap 1 cap once daily [Active]; Zofran (as hydrochloride) 4 mg Oral tab [Active]; cranberry 500 mg Oral cap [Active]; 16:47 Slow-Mag 71.5 mg Oral TbEC [Active]; Nexium Oral [Active]; hb - PMHx: 16:46 head and neck cancer; hb - Immunization history:: Adult Immunizations up to date. - Social history:: Smoking status: Patient/guardian denies using tobacco. - Ebola Screening: : No symptoms or risks identified at this time. Screenin:04 Abuse screen: Denies threats or abuse. Denies injuries from another. Nutritional ph screening: No deficits noted. Tuberculosis screening: No symptoms or risk factors identified. Fall Risk None identified. Assessment: 17:30 General: Appears in no apparent distress. comfortable, Behavior is calm, cooperative, ph appropriate for age, Denies fever. Pain: Complains of pain in right shoulder Pain radiates to right lateral anterior chest. Neuro: Level of Consciousness is awake, alert, obeys commands, Oriented to person, place, time, situation. Cardiovascular: Capillary refill < 3 seconds in bilateral fingers Patient's skin is warm and dry. Respiratory: Airway is patent Respiratory effort is even, unlabored, Respiratory pattern is regular, symmetrical. GI: No signs and/or symptoms were reported involving the gastrointestinal system. Derm: Skin is intact, is healthy with good turgor, Skin is pink, warm \T\ dry. Bruising that is dark purple, on right lateral anterior chest. Musculoskeletal: Circulation, motion, and sensation intact. Range of motion: intact in all extremities. 18:30 Reassessment: Patient appears in no apparent distress at this time. Patient and/or ph family updated on plan of care and expected duration. Pain level reassessed. Patient is alert, oriented x 3, equal unlabored respirations, skin warm/dry/pink. Pt resting quietly, awaiting lab results and CT scan, at bedside. 19:30 Reassessment: Patient appears in no apparent distress at this time. Patient and/or jb4 family updated on plan of care and expected duration. Pain level reassessed. Patient is alert, oriented x 3, equal unlabored respirations, skin warm/dry/pink. 20:30 Reassessment: Patient appears in no apparent distress at this time. Patient and/or jb4 family updated on plan of care and expected duration. Pain level reassessed. Patient is alert, oriented x 3, equal unlabored respirations, skin warm/dry/pink. Patient states feeling better. 21:30 Reassessment: Patient appears in no apparent distress at this time. Patient and/or jb4 family updated on plan of care and expected duration. Pain level reassessed. Patient is alert, oriented x 3, equal unlabored respirations, skin warm/dry/pink. 22:07 Reassessment: attempted to call report, instructed to wait for call back. jb4 22:30 Reassessment: Patient appears in no apparent distress at this time. Patient and/or jb4 family updated on plan of care and expected duration. Pain level reassessed. Patient is alert, oriented x 3, equal unlabored respirations, skin warm/dry/pink. Vital Signs: 16:45 BP 130 / 71; Pulse 90; Resp 18; Temp 98.3; Pulse Ox 97% on R/A; Pain 4/10; hb 18:00 BP 128 / 76; Pulse 85; Resp 18; Pulse Ox 98% on R/A; ph 18:51 BP 127 / 71; Pulse 80; Resp 20; Temp 98.1(O); Pulse Ox 100% on R/A; mh5 19:30 BP 127 / 74; Pulse 80; Resp 16; Pulse Ox 100% on R/A; jb4 20:27 BP 112 / 63; Pulse 78; Resp 16; Pulse Ox 100% on R/A; mt 21:55 BP 121 / 65; Pulse 77; Resp 16; Temp 98.3(O); Pulse Ox 100% on R/A; jb4 ED Course: 16:35 Patient arrived in ED. rg4 16:35 Basim Alexander DO is Private Physician. rg4 16:45 Triage completed. hb 16:45 Arm band placed on. hb 17:23 Josi Valdez, RN is Primary Nurse. ph 17:30 Robert Davidson PA is PHCP. jr8 17:30 Bharath Chavarria MD is Attending Physician. jr8 17:44 Radiology exam delayed due to lab results not completed at this time. (BUN/Creatinine). vm2 18:05 Patient has correct armband on for positive identification. Bed in low position. Call ph light in reach. Side rails up X 1. Pulse ox on. NIBP on. Door closed. Warm blanket given. Pillow given. 18:15 Inserted saline lock: 20 gauge in left forearm, using aseptic technique. ph 18:35 Radiology exam delayed due to lab results not completed at this time. (BUN/Creatinine). vm2 18:52 Radiology exam delayed due to lab results not completed at this time. (BUN/Creatinine). vm2 19:[address] vm2 19:19 No provider procedures requiring assistance completed. ph 19:20 CT completed. Patient tolerated procedure well. Patient moved back from CT. vm2 19:24 CT Chest W/ Con In Process Unspecified. EDMS 21:06 CBC Smear Scan Sent. jb4 21:43 Donald Cohen MD is Hospitalizing Provider. jr8 21:54 Filiberto Dumont, RN is Primary Nurse. jb4 22:30 Patient admitted, IV remains in place. jb4 Administered Medications: No medications were administered Outcome: 21:44 Decision to Hospitalize by Provider. jr8 22:30 Admitted to Tele accompanied by nurse, via wheelchair, room 416, with chart, Report jb4 called to SURINDER Cardoza 22:30 Condition: stable 22:30 Discharge instructions given to patient, Instructed on the need for admit, Demonstrated understanding of instructions. 22:48 Patient left the ED. jb4 Signatures: Dispatcher [employer] EDMS Robert Davidson PA PA jr8 Josi Valdez RN RN Dorota Vickers RN RN Mariela Charles 4 Filiberto Dumont, RN RN jb4 Jaclyn Alberto [facility] Meaghan [facility] Concepcion Rodriguez ar Corrections: (The following items were deleted from the chart) 16:47 16:46 Home Meds: carvedilol 12.5 mg Oral tab 1 tab 2 times per day; hb hb 16:47 16:46 Home Meds: MEDROL DOSE PACK; hb hb 22:08 21:55 BP 121 / 65; Pulse 77bpm; Resp 16bpm; Pulse Ox 100% RA; jb4 jb4
--- NOTE | 2019-01-09 21:45 | EDPHYS ---
Physician Documentation [facility] Name: Isai Becker Age: 63 yrs Sex: Male : 1955 Arrival Date: 01/09/2019 Time: 16:35 Bed 18 Private MD: Basim Alexander ED Physician Bharath Chavarria HPI: 01/09 21:10 This 63 yrs old Male presents to ER via Ambulatory with complaints of Arm jr8 Pain. 21:10 Onset: The symptoms/episode began/occurred acutely, yesterday. Treatment prior to jr8 arrival includes: over the counter medications, NSAIDS. Modifying factors: The symptoms are alleviated by nothing. the symptoms are aggravated by nothing. Severity of symptoms: At their worst the symptoms were moderate, in the emergency department the symptoms are unchanged. The patient has not experienced similar symptoms in the past. The patient has not recently seen a physician. Patient stated that yesterday he had arm pain that started suddenly. Took some ibuprofen and had mild relief. Could hardly move yesterday. Today better but still hurting. Noticed bruising to left chest. Came to ED at that time for evaluation. Patient currently under treatment for cancer . Historical: - Allergies: 16:46 No Known Allergies; hb - Home Meds: 16:46 baclofen 10 mg Oral tab [Active]; chemo [Active]; D-3 2000 IU daily [Active]; lorazepam hb 0.5 mg Oral tab 1 tab [Active]; mirtazapine 15 mg Oral TbDL 1 tab once daily [Active]; nitrofurantoin macrocrystal 50 mg Oral cap 1 cap once daily [Active]; Zofran (as hydrochloride) 4 mg Oral tab [Active]; cranberry 500 mg Oral cap [Active]; 16:47 Slow-Mag 71.5 mg Oral TbEC [Active]; Nexium Oral [Active]; hb - PMHx: 16:46 head and neck cancer; hb - Immunization history:: Adult Immunizations up to date. - Social history:: Smoking status: Patient/guardian denies using tobacco. - Ebola Screening: : No symptoms or risks identified at this time. ROS: 21:10 Eyes: Negative for injury, pain, redness, and discharge, ENT: Negative for injury, jr8 pain, and discharge, Neck: Negative for injury, pain, and swelling, Cardiovascular: Negative for chest pain, palpitations, and edema, Respiratory: Negative for shortness of breath, cough, wheezing, and pleuritic chest pain, Abdomen/GI: Negative for abdominal pain, nausea, vomiting, diarrhea, and constipation, Back: Negative for injury and pain, Neuro: Negative for headache, weakness, numbness, tingling, and seizure. 21:10 MS/extremity: Positive for pain, of the right shoulder. 21:10 Skin: Positive for ecchymosis, of the right lateral chest wall. Exam: 21:14 Head/Face: Normocephalic, atraumatic. Eyes: Pupils equal round and reactive to light, jr8 extra-ocular motions intact. Lids and lashes normal. Conjunctiva and sclera are non-icteric and not injected. Cornea within normal limits. Periorbital areas with no swelling, redness, or edema. ENT: Nares patent. No nasal discharge, no septal abnormalities noted. Tympanic membranes are normal and external auditory canals are clear. Oropharynx with no redness, swelling, or masses, exudates, or evidence of obstruction, uvula midline. Mucous membranes moist. Neck: Trachea midline, no thyromegaly or masses palpated, and no cervical lymphadenopathy. Supple, full range of motion without nuchal rigidity, or vertebral point tenderness. No Meningismus. Cardiovascular: Regular rate and rhythm with a normal S1 and S2. No gallops, murmurs, or rubs. Normal PMI, no JVD. No pulse deficits. Respiratory: Lungs have equal breath sounds bilaterally, clear to auscultation and percussion. No rales, rhonchi or wheezes noted. No increased work of breathing, no retractions or nasal flaring. Abdomen/GI: Soft, non-tender, with normal bowel sounds. No distension or tympany. No guarding or rebound. No evidence of tenderness throughout. Back: No spinal tenderness. No costovertebral tenderness. Full range of motion. Skin: Warm, dry with normal turgor. Normal color with no rashes, no lesions, and no evidence of cellulitis. MS/ Extremity: Pulses equal, no cyanosis. Neurovascular intact. Full, normal range of motion. Neuro: Awake and alert, GCS 15, oriented to person, place, time, and situation. Cranial nerves II-XII grossly intact. Motor strength 5/5 in all extremities. Sensory grossly intact. Cerebellar exam normal. Normal gait. 21:14 Chest/axilla: Inspection: Hematoma noted to right lateral chest wall and axillary region , Palpation: is normal, no crepitus, no tenderness, Axilla: lymphadenopathy, is not appreciated, mass, is not appreciated, Lymph nodes: lymphadenopathy is not appreciated. Vital Signs: 16:45 BP 130 / 71; Pulse 90; Resp 18; Temp 98.3; Pulse Ox 97% on R/A; Pain 4/10; hb 18:00 BP 128 / 76; Pulse 85; Resp 18; Pulse Ox 98% on R/A; ph 18:51 BP 127 / 71; Pulse 80; Resp 20; Temp 98.1(O); Pulse Ox 100% on R/A; mh5 19:30 BP 127 / 74; Pulse 80; Resp 16; Pulse Ox 100% on R/A; jb4 20:27 BP 112 / 63; Pulse 78; Resp 16; Pulse Ox 100% on R/A; mt 21:55 BP 121 / 65; Pulse 77; Resp 16; Temp 98.3(O); Pulse Ox 100% on R/A; jb4 MDM: 17:30 Patient medically screened. jr8 21:42 Data reviewed: vital signs, nurses notes, lab test result(s), radiologic studies, CT jr8 scan. Data interpreted: Pulse oximetry: on room air is 100 %. Interpretation: normal. Counseling: I had a detailed discussion with the patient and/or guardian regarding: the historical points, exam findings, and any diagnostic results supporting the discharge/admit diagnosis, lab results, radiology results, the need for further work-up and treatment in the hospital. Physician consultation: Donald Cohen MD was called at 21:42, was contacted at 21:42, regarding admission, to the telemetry unit. consult, patient's condition, and will see patient. ED course: Dr. Lund consulted as well as Dr. Rea. Both of which will see patient as consult . 01/09 17:42 Order name: CBC with Diff; Complete Time: 19:49 jr8 01/09 17:42 Order name: Basic Metabolic Panel; Complete Time: 19:49 jr8 01/09 18:50 Order name: Manual Differential; Complete Time: 19:49 EDMS 01/09 20:26 Order name: CBC with Diff; Complete Time: 21:24 [facility] 01/09 20:48 Order name: CBC Smear Scan; Complete Time: 21:24 EDMD 01/09 21:43 Order name: Vitamin B12 Level EDMD 01/09 21:43 Order name: Folic Acid, (Folate) EDMD 01/09 21:43 Order name: Iron EDMD 01/09 21:43 Order name: Liver (Hepatic) Function EDMD 01/09 21:43 Order name: Protime (+INR) EDMD 01/09 21:43 Order name: PTT, Activated Partial Thromb EDMD 01/09 21:43 Order name: Retic Count EDMD 01/09 21:43 Order name: CBC with Automated Diff EDMD 01/09 21:43 Order name: CBC with Automated Diff EDMD 01/09 17:42 Order name: CT Chest W/ Con; Complete Time: 20:17 [facility] 01/09 17:42 Order name: IV; Complete Time: 19:18 [facility] 01/09 21:43 Order name: CONS Pharmacy Consult EDMD 01/09 21:43 Order name: CONS Physician Consult EDMD 01/09 21:43 Order name: CONS Physician Consult [facility] 01/09 21:43 Order name: Heart Healthy EDMD 01/09 21:43 Order name: Comprehensive Metabolic Panel EDMD 01/09 21:43 Order name: Comprehensive Metabolic Panel [facility] 01/09 21:44 Order name: CBC with Automated Diff EDMD Administered Medications: No medications were administered Disposition: 01/10 07:18 Co-signature as Attending Physician, Bharath Chavarria MD I agree with the assessment and kdr plan of care. Disposition: 01/09/19 21:44 Hospitalization ordered by Donald Cohen for Inpatient Admission. Preliminary diagnosis are Spontaneous Hematoma Right Chest Wall , Anemia . - Bed requested for Telemetry/MedSurg (Inpatient). - Status is Inpatient Admission. jb4 - Condition is Fair. - Problem is new. - Symptoms have improved. UTI on Admission? No Signatures: Dispatcher [employer] [facility] Lluvia Armas RN RN mw Rittger, Kevin, MD MD kdr Robert Davidson PA PA jr8 Dorota Vickers RN RN Filiberto Dumont RN RN jb4 Corrections: (The following items were deleted from the chart) 01/09 16:47 16:46 Home Meds: carvedilol 12.5 mg Oral tab 1 tab 2 times per day; hb hb 16:47 16:46 Home Meds: MEDROL DOSE PACK; hb hb 21:47 21:44 Hospitalization Ordered by Donald Cohen MD for Inpatient Admission. Preliminary mw diagnosis is Spontaneous Hematoma Right Chest Wall ; Anemia . Bed requested for Telemetry/MedSurg (Inpatient). Status is Inpatient Admission. Condition is Fair. Problem is new. Symptoms have improved. UTI on Admission? No. jr8 22:48 21:47 01/09/2019 21:44 Hospitalization Ordered by Donald Cohen MD for Inpatient jb4 Admission. Preliminary diagnosis is Spontaneous Hematoma Right Chest Wall ; Anemia . Bed requested for Telemetry/MedSurg (Inpatient). Status is Inpatient Admission. Condition is Fair. Problem is new. Symptoms have improved. UTI on Admission? No. mw
[2019-01-09] MEDS: NA CHLORIDE 0.9% 1,000 ML IV SCH (23:20)
[2019-01-09 23:31] LABS: Absolute Lymphocytes (CBC) 1.2 K/uL (0.7-4.9); Absolute Monocytes 1.3 K/uL (0.1-1.3); Absolute Neutrophil 6.2 K/uL (1.8-8.0); Basophils % 0.8 % (0-1.3); Eosinophils % 2.7 % (0-4.4); Hematocrit 31.9 % (39.6-49.0); Lymphocytes % 13.7 % (15.3-44.8); MPV 9.5 fL (7.6-11.3); Monocytes % 14.6 % (3.3-12.3); RBC Red Blood Cell Count 3.42 M/uL (4.33-5.43)
[2019-01-10 00:14] LABS: RBC Red Blood Cell Count 3.42 M/uL (4.33-5.43)
[2019-01-10 00:37] LABS: Protime INR 1.28
[2019-01-10] MEDS ORDERED: TEMAZEPAM 15 MG CAP PO PRN (00:51)
[2019-01-10 00:55] VITALS: BMI 30.4
[2019-01-10 02:11] LABS: Albumin 3.1 g/dL (3.4-5.0); Bilirubin Direct 0.3 mg/dL (0-0.2); Bilirubin Total 0.7 mg/dL (0.2-1.0); Folic Acid, (Folate) 5.1 ng/mL (3.1-17.5); Protein, Total 6.8 g/dL (6.4-8.2)
[2019-01-10 06:11] LABS: Absolute Lymphocytes (CBC) 1.2 K/uL (0.7-4.9); Absolute Monocytes 1.3 K/uL (0.1-1.3); Absolute Neutrophil 4.7 K/uL (1.8-8.0); Basophils % 0.8 % (0-1.3); Eosinophils % 3.9 % (0-4.4); Hematocrit 28.3 % (39.6-49.0); Lymphocytes % 16.3 % (15.3-44.8); MPV 8.9 fL (7.6-11.3); Monocytes % 16.8 % (3.3-12.3); RBC Red Blood Cell Count 3.02 M/uL (4.33-5.43)
[2019-01-10 06:27] LABS: Albumin 2.7 g/dL (3.4-5.0); Bilirubin Total 0.6 mg/dL (0.2-1.0); Potassium 4.3 mmol/L (3.5-5.1)
[2019-01-10] MEDS ORDERED: PNEUMOCOCCAL VACCINE 0.5 ML IMVAC ONE (08:00)
[2019-01-10] MEDS ORDERED: LORAZEPAM 0.5 MG TABLET PO PRN (09:55)
--- NOTE | 2019-01-10 10:10 | P.HP ---
Certification for Inpatient Patient admitted to: Inpatient With expected LOS: >2 Midnights Patient will require the following post-hospital care: None Practitioner: I am a practitioner with admitting privileges, knowledge of patient current condition, hospital course, and medical plan of care. Services: Services provided to patient in accordance with Admission requirements found in Title 42 Section 412.3 of the Code of Federal Regulations Patient History Date of Service: 01/09/19 Reason for admission: Spontaneous hemorrhage History of Present Illness: Pt is a 63yo who was admitted to the hospital with a spontaneous hemorrhage. Patient noted that he was having pain in the right axilla. The pain was not improving. He asked his daughter to take a look and she noticed there was bruising. As he has started a new immunotherapy medication they decided to bring him into the hospital for further evaluation. 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 There is also bone involvement. Patient has been receiving immunotherapy for the last couple of weeks. His platelet count has decreased. He also dropped his hemoglobin in the emergency room. However, hemodynamically he was stable. Will probably need to admit him to the hospital for monitoring. Will get general surgery consultation as well. Allergies No Known Allergies Allergy (Verified 01/09/19 22:47) Home Medications: Nitrofurantoin Macrocrystal [Nitrofurantoin] 1 tab PO DAILY 09/26/18 Calcium Carbonate/Vitamin D3 [Calcium 500 mg-Vit D3 600 Unit] 2 tab PO DAILY Cholecalciferol (Vitamin D3) [Vitamin D3] 1 cap PO DAILY 01/09/19 Esomeprazole Mag Trihydrate [Nexium] 1 cap PO DAILY 01/09/19 LORazepam [Ativan*] 1 tab PO Q6H PRN 01/09/19 Slow Mag 71.5 mg PO DAILY 01/09/19 - Past Medical/Surgical History Has patient received pneumonia vaccine in the past: No Diabetic: No -: Throat,Liver, Bone Cancer under Chemo/ Immuno Therapy Opdivo last 12/30 -: Bilateral Knee Replacement - Family History Mother Medical History: Cancer - Social History Smoking Status: Never smoker Alcohol use: No CD- Drugs: No Place of Residence: Home Review of Systems 10-point ROS is otherwise unremarkable Physical Examination - Vital Signs Temperature: 97.5 F Blood Pressure: 125/59 Pulse: 76 Respirations: 16 Pulse Ox (%): 98 - Physical Exam General: Alert, In no apparent distress, Oriented x3 HEENT: Atraumatic, PERRLA, Mucous membr. moist/pink, EOMI, Sclerae nonicteric Neck: Supple, 2+ carotid pulse no bruit, No LAD, Without JVD or thyroid abnormality Respiratory: Clear to auscultation bilaterally, Normal air movement Cardiovascular: Regular rate/rhythm, Normal S1 S2, No murmurs Gastrointestinal: Normal bowel sounds, Soft and benign, Non-distended, No tenderness Musculoskeletal: No clubbing, No swelling, No tenderness Integumentary: No rashes Neurological: Normal gait, Normal speech, Normal strength at 5/5 x4 extr, Normal tone, Sensation intact, Cranial nerves 3-12 intact, Normal affect Lymphatics: No axilla or inguinal lymphadenopathy - Studies Laboratory Data (last 24 hrs) 01/09/19 20:30: WBC 8.8, Hgb 9.4 L, Hct 29.0 L, Plt Count 86 L D 01/09/19 18:25: Sodium 138, Potassium 4.6, BUN 12, Creatinine 1.02, Glucose 94 01/09/19 18:25: WBC 8.1, Hgb 11.1 L, Hct 33.8 L, Plt Count 110 L Assessment & Plan - Problems (Diagnosis) (1) Spontaneous hemorrhage Current Visit: Yes Status: Acute (2) Hematoma of right axilla Current Visit: Yes Status: Acute (3) Squamous cell carcinoma, metastatic Current Visit: Yes Status: Acute (4) Immunotherapy Current Visit: Yes Status: Acute - Plan Plan: 1. Serial H&H 2. Monitor patient hemodynamically 3. Pain control 4. Hematology and surgery consultation 5. Dressing for compression 6. GI and DVT prophylaxis - Advance Directives Does patient have a Living Will: No Does patient have a Durable POA for Healthcare: Yes - Code Status/Comfort Care Code Status Assessed: Yes Code Status: Full Code Critical Care: No Time Spent Managing PTS Care (In Minutes): 45
--- NOTE | 2019-01-10 10:35 | RAD REPORT ---
EXAM DESCRIPTION: CT - Pelvis Wo Cont - 01/10/2019 10:21 am CLINICAL HISTORY: Pelvic and leg pain, spontaneous hemorrhage COMPARISON: None. TECHNIQUE: Axial 5 millimeter thick images of the pelvis were obtained. Sagittal and coronal reconst ruction images were generated and reviewed. The CT scan was performed using dose optimization techniques as appropriate to a performed exam incl uding one or more of the following: Automated exposure control, adjustment of the mA and/or kV accord ing to patient size (this includes techniques or standardized protocols for targeted exams where dose is matched to indication/reason for exam) and use of iterative reconstruction technique. FINDINGS: Bony pelvis shows innumerable blastic lesions scattered throughout the bony pelvis includi ng sacrum. Blastic changes are present in the femoral head, neck and intertrochanteric region. No pat hologic fracture or pending fracture seen. Urinary bladder is distended and contains contrast from prior CT examination. Prostate is not abnorma lly enlarged. Small ventral hernia is seen near the umbilicus. This contains only fat. No skeletal mass or hematoma. No hematoma in the fatty soft tissues of the pelvis. Muscle asymmetry i s created by pelvis being tilted at image acquisition. IMPRESSION: No hematoma or suspicious mass lesion in the soft tissues of the pelvis. Numerous blastic metastatic lesions throughout the pelvis.
--- NOTE | 2019-01-10 10:37 | RAD REPORT ---
EXAM DESCRIPTION: CT - Low Extremity Wo Cont - 01/10/2019 10:21 am CLINICAL HISTORY: Right leg pain and swelling. History of spontaneous hemorrhage of the chest. Histo ry of head and neck cancer COMPARISON: None. TECHNIQUE: Axial 5 millimeter thick images of the right lower extremity were obtained from hip joint to proximal tibia. The CT scan was performed using dose optimization techniques as appropriate to a performed exam incl uding one or more of the following: Automated exposure control, adjustment of the mA and/or kV accord ing to patient size (this includes techniques or standardized protocols for targeted exams where dose is matched to indication/reason for exam) and use of iterative reconstruction technique. FINDINGS: No soft tissue mass or hematoma. No skeletal muscle abnormality identifiable. Artifact is present from the right knee prosthesis. Minimal joint effusion is seen. No acute or destructive bone process. Proximal femur blastic changes detailed on the CT pelvis report . IMPRESSION: No soft tissue mass or hematoma. No acute bone finding.
[2019-01-10] MEDS: NA CHLORIDE 0.9% 1,000 ML IV SCH (11:20)
[2019-01-10 13:33] LABS: Urine Appearance CLOUDY; Urine Bilirubin NEGATIVE (NEG); Urine Blood 3+ (NEG); Urine Color RED; Urine Glucose NEGATIVE (NEG); Urine Protein 1+ (NEG); Urine Urobilinogen 0.2 mg/dL (0.2-1.0)
--- NOTE | 2019-01-10 13:35 | P.PN ---
Subjective Date of Service: 01/10/19 Chief Complaint: Spontaneous hemorrhage Pt seen and examined at bedside. Chart Reviewed. Case DW with Hematology. Awaiting General Surgery reccs. c/o of pain on the right axilla Review of Systems 10-point ROS is otherwise unremarkable Physical Examination - Vital Signs Temperature: 97.7 F Blood Pressure: 136/68 Pulse: 79 Respirations: 16 Pulse Ox (%): 98 - Physical Exam General: Alert, In no apparent distress HEENT: Atraumatic, PERRLA, EOMI Neck: Supple, JVD not distended Respiratory: Clear to auscultation bilaterally, Normal air movement Cardiovascular: Regular rate/rhythm, Normal S1 S2 Gastrointestinal: Normal bowel sounds, No tenderness Musculoskeletal: No tenderness Integumentary: Other (right axilla Hematoma noted. Marked. no growth past the margin) Neurological: Normal speech, Normal tone, Normal affect Lymphatics: No axilla or inguinal lymphadenopathy - Studies Laboratory Data (last 24 hrs) 01/09/19 20:30: WBC 8.8, Hgb 9.4 L, Hct 29.0 L, Plt Count 86 L D 01/09/19 18:25: Sodium 138, Potassium 4.6, BUN 12, Creatinine 1.02, Glucose 94 01/09/19 18:25: WBC 8.1, Hgb 11.1 L, Hct 33.8 L, Plt Count 110 L Medications List Reviewed: Yes Assessment And Plan - Current Problems (Diagnosis) (1) Hematoma of right axilla Current Visit: Yes Status: Acute Plan: Heamtoma most likely 2.2 to immunotherapy medication vs DIC -hematology and gen Surgery consulted. -lab work pending at this time. -PT/INR and CBC ordered. DIC panel pending as well -Awaiting Gen surgery reccs -If acute worsening pt can be transferred to tertiary care center for further care Qualifiers: Encounter type: initial encounter Qualified Code(s): S40.021A - Contusion of right upper arm, initial encounter (2) Squamous cell carcinoma, metastatic Current Visit: Yes Status: Chronic Plan: SCC with metastic to the bone and possible liver Discharge Plan: Home Plan to discharge in: Greater than 2 days - Code Status/Comfort Care Code Status Assessed: Yes Critical Care: No
[2019-01-10 13:36] LABS: Absolute Lymphocytes (CBC) 0.9 K/uL (0.7-4.9); Absolute Monocytes 1.1 K/uL (0.1-1.3); Absolute Neutrophil 5.1 K/uL (1.8-8.0); Basophils % 0.6 % (0-1.3); Eosinophils % 1.9 % (0-4.4); Hematocrit 27.8 % (39.6-49.0); Lymphocytes % 12.4 % (15.3-44.8); MPV 8.9 fL (7.6-11.3); Monocytes % 15.7 % (3.3-12.3); RBC Red Blood Cell Count 2.98 M/uL (4.33-5.43)
[2019-01-10 13:45] LABS: Urine Microscopic Reflex ORDER UMIC
[2019-01-10 13:52] LABS: Protime INR 1.29
[2019-01-10 14:00] LABS: Urine Bacteria 20-50 /HPF (NONE SEEN); Urine RBC LOADED /HPF (NONE SEEN)
[2019-01-10 14:01] LABS: Urine Culture Reflex Order REFLEXED
--- NOTE | 2019-01-10 14:07 | P.CNS ---
Date of Consult: 01/10/19 PC: I was asked to see this 63-year-old male with developed a large hematoma underneath his right axilla. HPC: Patient apparently had been out last weekend, helping his son move into a new home. History noticed a large nerve discoloration with some shoulder pain. Came to the emergency room for evaluation treatment. 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 Has received radiation therapy. Also had surgery. Apparently has metastatic disease at this time. SOC: On various medications SYS REVIEW: States he is of relatively good health all things considered O/E awake alert stable comfortable at the HEENT: Within normal limits Chest: On the right lateral chest wall has an area hematoma extending from just at the posterior axillary line down to just above the nipple level on that side. Not an organized hematoma, feels more in the fat. Chemo port is visible over the right chest ABD: Soft, has an area of discoloration also in the right groin area LOCO: Intact DATA: Hemoglobin 9.6 yesterday 9.5 today IMPRESSION:, this patient, had a bleeding secondary to his his compromise stable with his cancer treatment. Does not appear to be actively bleeding at the moment. Medications have been stopped at this time. PLAN: Patient is surgically stable, no intervention will most likely be required for this episode. I have discussed this with the patient and his . The fact that the hematoma will continue to drift down worse was explained. Should they have any questions or problems, they can contact my office or return to the emergency room. They are happy content with this plan. They will be seen by their oncologist as well as the hospitalist during this hospital stay.
[2019-01-10] MEDS: MORPHINE 2 MG/ML SYR IV PRN ×2 (18:38→22:30)
--- NOTE | 2019-01-10 20:17 | P.PN ---
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 He is currently on palliative immunotherapy with nivolumab (opdivo) . He is currently admitted with a sudden onset ecchymoses in the right axillary region. Initially presented with some pain when he noticed enlarging bruise. Apparently there may be an element of trauma a week ago. On presentation to ER he had a Hb of 11gm but then dropped to 9.5gm in a couple of hours on 01/09/19. Hb has remained stable today though. WHen seen today, he reports feeling great and awaiting to be seen by Surgery. Denies any pain, gross bleeding elsewhere, purpura or petechiae. IV sites intact and no oozing. No problems in ROM. Denies chest pain, sob. a 10 point ROS was done and pertienent points as in HPI. Vitals stable EXAMINATION: General Appearance: Well developed, well dressed, alert, cooperative, appears to be in no acute distress. Skin, Hair & Nails: echhymoses + right axillary with drawn margins to assess extension. No open wounds. Few small bruises in the thighs Head: normocephalic, atraumatic. Eyes: anicteric, no injection of conjunctivae. Ears: hearing grossly intact. Nose: nares patent. Throat: no erythema, no exudate. Neck: neck supple, without lymphadenopathy. Respiratory: good respiratory effort, clear to auscultation, no wheezing. Cardiovascular: regular rate and rhythm, no murmurs, no cyanosis. Abdomen: bowel sounds present and equal in all four quadrants, abdomen is soft, nondistended, no masses, no hepatosplenomegaly. Peripheral Vascular: no pedal edema. Musculoskeletal: normal gait, normal posture, 5/5 strength through upper extremities. Neurological: AAOx3, CN II-XII intact, Strength symmetric and intact throughout Labs: 7.3> 9.4/27.8< 92 Bun/cr 12/0.[address] Bi 0.6/ direct 0.3 PT 15.1/ PTT 29/ INR 1.27 PROBLEMS: Spontaneous Ecchymoses of unclear origin: It is possible the bruise may be secondary to recent ?trauma. But given mild PT elevation and thrombocytopenia, I am concerned about DIC due to underlying extensive metastatic disease (liver and bone mets). Due to liver metastasis, it is possible he is deficient in coagulation factors and may have a coagulopathy. Hb has remained stable for > 12 hours and no overt extension of the bruise since this morning. He is awaiting to be seen by Surgery. For now, recommend, 2 FFP if actively bleeding. Check Fibrinogen. If bleeding and fibrinogen level less than 100, recommend cryoprecipitate as well. Transfuse PRBC to keep Codey >8gm Monitor cbc q 12h and daily coagulation studies (PT,PTT, Fibrinogen) I will follow closely and please do not hesitate to contact me should there be any concerns or questions.
[2019-01-11] MEDS: MORPHINE 2 MG/ML SYR IV PRN ×5 (04:25→21:45)
[2019-01-11] MEDS: NA CHLORIDE 0.9% 1,000 ML IV SCH (04:25)
[2019-01-11] MEDS: PANTOPRAZOLE 40MG TABLET PO SCH (06:10)
[2019-01-11 10:42] LABS: Hematocrit 23.5 % (39.6-49.0)
--- NOTE | 2019-01-11 12:37 | P.PN ---
Subjective Date of Service: 01/11/19 Chief Complaint: Spontaneous hemorrhage Pt seen and examined at bedside. Chart Reviewed. Case DW with Hematology and general Surgery. Hematoma is extending past the margin line made in the ER. hgb is down to 8.1 today. Review of Systems 10-point ROS is otherwise unremarkable Physical Examination - Vital Signs Temperature: 98 F Blood Pressure: 135/60 Pulse: 80 Respirations: 18 Pulse Ox (%): 98 - Physical Exam General: Alert, In no apparent distress Respiratory: Clear to auscultation bilaterally, Normal air movement Cardiovascular: Regular rate/rhythm, Normal S1 S2, Other (Chest Right sided Hematoma noted in the axilla and right breast area. Extending past the drawn margins ) Gastrointestinal: Normal bowel sounds, No tenderness Musculoskeletal: No tenderness Integumentary: No rashes Neurological: Normal speech, Normal tone, Normal affect Lymphatics: No axilla or inguinal lymphadenopathy - Studies Medications List Reviewed: Yes Assessment And Plan - Current Problems (Diagnosis) (1) Hematoma of right axilla Current Visit: Yes Status: Acute Plan: Hematoma most likely 2.2 to immunotherapy medication vs DIC -hematology and gen Surgery consulted. -hgb this AM is 8.1. Down from 9.4. Can be hemodilution vs related to Hematoma. -Will stop IV fluids and monitor for next 24 hrs. Will give 2 of ffp -If acute worsening pt can be transferred to tertiary care center for further care Qualifiers: Encounter type: initial encounter Qualified Code(s): S40.021A - Contusion of right upper arm, initial encounter (2) Squamous cell carcinoma, metastatic Current Visit: Yes Status: Chronic Plan: SCC with metastic to the bone and possible liver Discharge Plan: Home Plan to discharge in: Greater than 2 days - Code Status/Comfort Care Code Status Assessed: Yes Critical Care: No
[2019-01-11] MEDS ORDERED: NA CHLORIDE 0.9% 250 ML ONE ×2 (14:44→16:04)
[2019-01-11 21:26] LABS: Protime INR 1.35
[2019-01-11] MEDS ORDERED: ALPRAZOLAM 0.5 MG TABLET PO ONE (21:41)
[2019-01-12] MEDS: NA CHLORIDE 0.9% 1,000 ML IV SCH ×2 (01:00→21:00)
[2019-01-12] MEDS: PANTOPRAZOLE 40MG TABLET PO SCH (05:36)
[2019-01-12 06:36] LABS: Absolute Lymphocytes (CBC) 1.6 K/uL (0.7-4.9); Absolute Monocytes 1.7 K/uL (0.1-1.3); Absolute Neutrophil 7.2 K/uL (1.8-8.0); Basophils % 0.3 % (0-1.3); Hematocrit 19.3 % (39.6-49.0); Lymphocytes % 15.4 % (15.3-44.8); MPV 9.8 fL (7.6-11.3); Monocytes % 16.2 % (3.3-12.3); RBC Red Blood Cell Count 2.07 M/uL (4.33-5.43)
[2019-01-12 06:39] LABS: Protime INR 1.3
[2019-01-12 06:55] LABS: Albumin 2.5 g/dL (3.4-5.0); Potassium 4.7 mmol/L (3.5-5.1); Protein, Total 5.6 g/dL (6.4-8.2)
[2019-01-12] MEDS ORDERED: NA CHLORIDE 0.9% 250 ML ONE ×4 (08:02→17:13)
--- NOTE | 2019-01-12 08:05 | RAD REPORT ---
EXAM DESCRIPTION: CT - Thorax W/ Con - 01/12/2019 7:03 am CLINICAL HISTORY: Soft tissue hematoma, spontaneous hemorrhage, chest pain COMPARISON: CT January 09 TECHNIQUE: Dynamically enhanced 5 mm thick images of the chest were obtained during administration o f 100 mL non-ionic IV contrast. All CT scans are performed using dose optimization technique as appropriate and may include automated exposure control or mA/KV adjustment according to patient size. FINDINGS: No new lung parenchymal process. No pleural based mass. Trace pleural fluid in each depend ent lung base. No pneumothorax. No new mediastinal or hilar finding. No new bone finding. There is significantly more bruising or edematous stranding in the subcutaneous fatty tissues in the upper right chest and shoulder region. This is anterior, lateral and posterior in location. There are new 6 x 4 cm and 6 x 3 cm hematoma is in the inferior right axilla. Pectoralis musculature is more t hickened and edematous. This could be edema or a minimal amount of intramuscular hemorrhage. A define d hematoma within the muscle is not seen. Subscapularis intramuscular hematoma has enlarged. Trapeziu s muscle thickening and edema also progressive. Thickening and edema present in the latissimus dorsi muscle as well. No arterial side extravasation contrast. Right chest and shoulder venous side assessment is more limi mahogany. There does appear to be dilation enlargement of the brachial vein possibly from extrinsic compre ssion of the axillary vein from the hematoma changes. IMPRESSION: Progression of the hemorrhagic changes to the right shoulder and upper right chest. New 6 centimeter hematomas are present in the right axilla with enlargement of the intramuscular subscapu meenakshi muscle hematoma. General enlargement of the right shoulder region musculature likely from edema. No additional defined intramuscular hematomas. Significantly more contusion and edema changes in the subcutaneous fatty tissues of the right shoulde r and upper right chest. Brachial vein appears enlarged possibly due to extrinsic compression of the axillary vein. No arteria l side extravasation.
--- NOTE | 2019-01-12 09:50 | P.PN ---
Subjective Date of Service: 01/12/19 Chief Complaint: Spontaneous hemorrhage Pt seen and examined at bedside. Chart Reviewed. Case DW with Hematology and general Surgery. Hematoma is extending past the margin line made in the ER. hgb is down to 6.[address] scan with Worsening Hematoma as well. Review of Systems 10-point ROS is otherwise unremarkable Physical Examination - Vital Signs Temperature: 98.1 F Blood Pressure: 117/58 Pulse: 87 Respirations: 16 Pulse Ox (%): 98 - Physical Exam General: Alert, In no apparent distress HEENT: Atraumatic, PERRLA, EOMI Neck: Supple, JVD not distended Respiratory: Clear to auscultation bilaterally, Normal air movement Cardiovascular: Regular rate/rhythm, Normal S1 S2 Gastrointestinal: Normal bowel sounds, No tenderness Musculoskeletal: Other (Extensive Right Chest Hematoma ) Integumentary: No rashes Neurological: Normal speech, Normal tone, Normal affect Lymphatics: No axilla or inguinal lymphadenopathy - Studies Laboratory Data (last 24 hrs) 01/11/19 10:23: Hgb 8.1 L, Hct 23.5 L D Microbiology Data (last 24 hrs): 01/10/19 12:05 Clean Catch Urine Pansey Count - Final >100,000 CFU/ML. 01/10/19 12:05 Clean Catch Urine - Final Medications List Reviewed: Yes Assessment And Plan - Current Problems (Diagnosis) (1) Hematoma of right axilla Current Visit: Yes Status: Acute Plan: Hematoma most likely 2.2 to immunotherapy medication vs DIC -hematology and gen Surgery consulted. -hgb this AM is 6.4 Trending down. -S/P 2 FFP yesterday. Will transfuse 2 more of FFP, 2 Cryo and 2 PRBC today -Started Transfer process to where he is seen by Dr Chris Head and Neck Oncologist today. Awaiting MD and Bed at this time Qualifiers: Encounter type: initial encounter Qualified Code(s): S40.021A - Contusion of right upper arm, initial encounter (2) Squamous cell carcinoma, metastatic Current Visit: Yes Status: Chronic Plan: SCC with metastic to the bone and possible liver Discharge Plan: Other Plan to discharge in: Greater than 2 days - Code Status/Comfort Care Code Status Assessed: Yes Critical Care: No
[2019-01-12] MEDS: MORPHINE 2 MG/ML SYR IV PRN ×2 (12:13→17:18)
[2019-01-12 19:08] LABS: Protime INR 1.29
[2019-01-12] MEDS ORDERED: ALPRAZOLAM 0.5 MG TABLET PO ONE (21:18)
[2019-01-12] MEDS ORDERED: HYDROMORPHONE HCL 1 MG/ML INJ IV ONE (21:19)
[2019-01-13 00:25] LABS: Hematocrit 19.6 % (39.6-49.0)
[2019-01-13] MEDS: HYDROMORPHONE HCL 1 MG/ML INJ IV PRN ×4 (03:07→21:19)
[2019-01-13] MEDS: PANTOPRAZOLE 40MG TABLET PO SCH (06:31)
[2019-01-13] MEDS: NA CHLORIDE 0.9% 1,000 ML IV SCH ×2 (07:41→16:52)
[2019-01-13 08:09] LABS: Absolute Lymphocytes (CBC) 1.6 K/uL (0.7-4.9); Absolute Neutrophil 9.7 K/uL (1.8-8.0); Basophils % 0.4 % (0-1.3); Eosinophils % 1.4 % (0-4.4); Lymphocytes % 11.5 % (15.3-44.8); MPV 8.8 fL (7.6-11.3); Monocytes % 14.9 % (3.3-12.3); RBC Red Blood Cell Count 2.24 M/uL (4.33-5.43)
[2019-01-13 08:12] LABS: Protime INR 1.27
[2019-01-13 08:16] LABS: Albumin 2.6 g/dL (3.4-5.0); Bilirubin Total 1.2 mg/dL (0.2-1.0); Potassium 4.2 mmol/L (3.5-5.1)
[2019-01-13] MEDS ORDERED: NA CHLORIDE 0.9% 250 ML ONE ×2 (10:19→15:14)
--- NOTE | 2019-01-13 14:10 | P.PN ---
Date of Service: 01/13/19 S: Patient has some right shoulder tenderness, says is slightly more than when he came in. He is concerned about the hematoma, and when he is going to be transferred. O: Vital signs are stable, currently 120/56 he is not tachycardic his hemoglobin hematocrit are 6.9 and 21. Platelet count is in the 90. A: Patient still has hematoma on the right side is upper chest and shoulder. Confirmed by CT scan. Possibly larger than his initial presentation. P: This is not at the current time most likely to require any surgical intervention. We are currently waiting on the bed for the patient transferred. In the meantime, patient has been NPO for the last 48 hr. I will give him a regular diet. He could be made NPO at midnight until morning labs are drawn, but I do not see any pending surgical intervention over the next 24-48 hr.
[2019-01-13] MEDS: CODEINE 30MG/APAP 300MG TAB PO PRN ×3 (14:37→22:37)
--- NOTE | 2019-01-13 16:48 | P.PN ---
Subjective Date of Service: 01/13/19 Chief Complaint: Spontaneous hemorrhage Patient seen and examined with RN no overnight events, labs reviewed, received full units PRBC Hemoglobin 6.6, discussed the case was hematology and surgery To discuss the case was the hospitalist at [facility] Dr. Martines who [id number] that pt needs step down bed and as for now no bed available family was at the bed side ,updated about the transfer plan ,questions answered Review of Systems 10-point ROS is otherwise unremarkable Physical Examination - Vital Signs Temperature: 97.6 F Blood Pressure: 146/66 Pulse: 76 Respirations: 18 Pulse Ox (%): 98 - Physical Exam General: Alert, Oriented x3 HEENT: Atraumatic, Normocephalic, PERRLA Respiratory: Clear to auscultation bilaterally, Normal air movement Cardiovascular: No edema, Regular rate/rhythm, Normal S1 S2 Gastrointestinal: Normal bowel sounds, Soft and benign, Non-distended Musculoskeletal: Erythema, Tenderness Neurological: Normal strength at 5/5 x4 extr - Studies Medications List Reviewed: Yes Assessment And Plan - Current Problems (Diagnosis) (1) Hematoma of right axilla Current Visit: Yes Status: Acute Qualifiers: Encounter type: initial encounter Qualified Code(s): S40.021A - Contusion of right upper arm, initial encounter (2) Immunotherapy Current Visit: Yes Status: Acute (3) Spontaneous hemorrhage Current Visit: Yes Status: Acute (4) Squamous cell carcinoma, metastatic Current Visit: Yes Status: Chronic - Plan Hematoma of the right axilla and shoulder monitor CBc q8 hr Repeat CT scan showed explanation all the hematoma Surgery consulted hematology on board prbc ,ffp and cryprecipitate transfusion awaiting bed availability at squamous cell carcinoma of the tongue Discharge Plan: Transfer Plan to discharge in: 24 Hours
[2019-01-13] MEDS ORDERED: LACTULOSE 20 GM/30 ML UCUP PO PRN (18:00)
[2019-01-13 20:56] LABS: Absolute Lymphocytes (CBC) 1.5 K/uL (0.7-4.9); Absolute Monocytes 1.9 K/uL (0.1-1.3); Absolute Neutrophil 10.1 K/uL (1.8-8.0); Basophils % 0.4 % (0-1.3); Eosinophils % 1.8 % (0-4.4); Hematocrit 23.6 % (39.6-49.0); MPV 8.7 fL (7.6-11.3); Monocytes % 13.5 % (3.3-12.3)
--- NOTE | 2019-01-13 21:59 | P.PN ---
Date of Service: 01/13/19 (Oncology) Pt seen today as a follow up. Ecchymoses has expaned through the right lateral chest and abd wall. He denies pain on the bruise but does have some right shoulder pain for which he is taking tylenol#3 with relief. Denies any bleeding or oozing from any other site. NO fevers, chills, changes in bowel/ bladder habits. Denies abd pain, SCHWARTZ, chest pains, sob a 10 point ROS was done and pertienent points as in HPI. Vitals stable EXAMINATION: General Appearance: Well developed, alert, cooperative, appears to be in no acute distress. Skin, Hair & Nails: Large echhymoses ++ right axillary with drawn margins to assess extension. No open wounds. Few small bruises in the thighs Head: normocephalic, atraumatic. Eyes: anicteric, no injection of conjunctivae. Ears: hearing grossly intact. Nose: nares patent. Throat: no erythema, no exudate. Neck: neck supple, without lymphadenopathy. Respiratory: good respiratory effort, clear to auscultation, no wheezing. Cardiovascular: regular rate and rhythm, no murmurs, no cyanosis. Abdomen: bowel sounds present and equal in all four quadrants, abdomen is soft, nondistended, no masses, no hepatosplenomegaly. Peripheral Vascular: no pedal edema. Musculoskeletal: normal gait, normal posture, 5/5 strength through upper extremities. Neurological: AAOx3, CN II-XII intact, Strength symmetric and intact throughout Labs: 7.3> 9.4/27.8< 92------> Hb dropped to 6.4g Bun/cr 12/0.[address] Bi 0.6/ direct 0.3 PT 15.1/ PTT 29/ INR 1.27 Fb 146 (127) PROBLEMS: 1. Spontaneous Ecchymoses of unclear origin: It is possible the bruise may be secondary to recent ?trauma. Unclear bleeding source. But given mild PT elevation and thrombocytopenia, I am concerned about DIC due to underlying extensive metastatic disease (liver and bone mets). Significant expansion of the bruise since the last 2 days. Due to liver metastasis, it is possible he is deficient in coagulation factors and may have a coagulopathy. Pt may need surgical/ or IR exploration to evaluate and control bleeding source. Awaiting transfer to a tertiary setting. I also discussed with his Oncologist, Dr Chris, at [facility] today. For now, recommend, transfuse FFP if actively bleeding. If bleeding and fibrinogen level less than 100, recommend cryoprecipitate as well. Transfuse PRBC to keep Hb >8gm Monitor cbc and coagulation studies (PT,PTT, Fibrinogen) q 8-12h 2. 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 I will follow closely and please do not hesitate to contact me should there be any concerns or questions.
[2019-01-14] MEDS: HYDROMORPHONE HCL 1 MG/ML INJ IV PRN ×5 (02:00→23:01)
[2019-01-14] MEDS: CODEINE 30MG/APAP 300MG TAB PO PRN ×5 (03:44→21:00)
[2019-01-14] MEDS: PANTOPRAZOLE 40MG TABLET PO SCH (05:40)
[2019-01-14 06:30] LABS: Absolute Monocytes 1.8 K/uL (0.1-1.3); Absolute Neutrophil 10.5 K/uL (1.8-8.0); Basophils % 0.8 % (0-1.3); Eosinophils % 2.2 % (0-4.4); Hematocrit 21.9 % (39.6-49.0); Lymphocytes % 13.3 % (15.3-44.8); MPV 9.2 fL (7.6-11.3); Monocytes % 12.2 % (3.3-12.3)
[2019-01-14 06:50] LABS: Albumin 2.4 g/dL (3.4-5.0); Bilirubin Total 1.9 mg/dL (0.2-1.0); Potassium 4.3 mmol/L (3.5-5.1); Protein, Total 5.8 g/dL (6.4-8.2)
[2019-01-14 07:00] LABS: Protime INR 1.25
[2019-01-14] MEDS: NA CHLORIDE 0.9% 1,000 ML IV SCH (14:52)
--- NOTE | 2019-01-14 16:35 | P.PN ---
Subjective Date of Service: 01/14/19 Chief Complaint: Spontaneous hemorrhage Subjective: No new changes Patient seen and examined with RN ,no overnight events, labs reviewed, hgb trending up to 7.4 continue to monitor CBC q8hr pt is feeling better pending transfer to [facility] Review of Systems 10-point ROS is otherwise unremarkable Physical Examination - Vital Signs Temperature: 99.2 F Blood Pressure: 112/57 Pulse: 95 Respirations: 16 Pulse Ox (%): 92 - Physical Exam General: Alert, Oriented x3 HEENT: Atraumatic, Normocephalic, PERRLA Neck: JVD not distended Respiratory: Clear to auscultation bilaterally Cardiovascular: Regular rate/rhythm, Normal S1 S2 Gastrointestinal: Normal bowel sounds, Soft and benign, Non-distended - Studies Medications List Reviewed: Yes Assessment And Plan - Current Problems (Diagnosis) (1) Hematoma of right axilla Current Visit: Yes Status: Acute Qualifiers: Encounter type: initial encounter Qualified Code(s): S40.021A - Contusion of right upper arm, initial encounter (2) Immunotherapy Current Visit: Yes Status: Acute (3) Spontaneous hemorrhage Current Visit: Yes Status: Acute (4) Squamous cell carcinoma, metastatic Current Visit: Yes Status: Chronic - Plan Hematoma of the right axilla and shoulder monitor CBc q8 [address] scan showed explanation all the hematoma Surgery consulted hematology on board prbc ,ffp and cryprecipitate transfusion awaiting bed availability at Discharge Plan: Transfer Plan to discharge in: 24 Hours
[2019-01-14 17:05] LABS: Absolute Lymphocytes (CBC) 1.7 K/uL (0.7-4.9); Absolute Monocytes 1.9 K/uL (0.1-1.3); Absolute Neutrophil 10.8 K/uL (1.8-8.0); Basophils % 0.6 % (0-1.3); Eosinophils % 1.4 % (0-4.4); Hematocrit 21.8 % (39.6-49.0); Lymphocytes % 11.8 % (15.3-44.8); MPV 8.5 fL (7.6-11.3); Monocytes % 12.8 % (3.3-12.3); RBC Red Blood Cell Count 2.37 M/uL (4.33-5.43)
[2019-01-14 17:10] LABS: Protime INR 1.3
[2019-01-14] MEDS ORDERED: NA CHLORIDE 0.9% 250 ML IV SCH (19:00)
[2019-01-14] MEDS ORDERED: NA CHLORIDE 0.9% 500 ML ONE (20:38)
[2019-01-14] MEDS: DOCUSATE NA 100 MG CAP PO SCH (21:00)
[2019-01-14] MEDS ORDERED: NA CHLORIDE 0.9% 250 ML ONE (23:09)
[2019-01-15] MEDS: CODEINE 30MG/APAP 300MG TAB PO PRN ×6 (00:40→22:45)
[2019-01-15] MEDS: HYDROMORPHONE HCL 1 MG/ML INJ IV PRN ×4 (02:35→19:53)
[2019-01-15 05:05] LABS: Hematocrit 21.5 % (39.6-49.0)
[2019-01-15] MEDS: PANTOPRAZOLE 40MG TABLET PO SCH (05:09)
[2019-01-15] MEDS: DOCUSATE NA 100 MG CAP PO SCH ×2 (08:12→19:53)
[2019-01-15] MEDS: NA CHLORIDE 0.9% 1,000 ML IV SCH (09:00)
[2019-01-15 11:11] LABS: RBC Red Blood Cell Count 2.41 M/uL (4.33-5.43)
[2019-01-15 11:24] LABS: Protime INR 1.27
[2019-01-15 11:37] LABS: Bilirubin Direct 1.3 mg/dL (0-0.2); Bilirubin Total 2.5 mg/dL (0.2-1.0)
--- NOTE | 2019-01-15 17:48 | P.PN ---
Subjective Date of Service: 01/15/19 Chief Complaint: Spontaneous hemorrhage Subjective: Other (Patient stable this time.) Physical Examination - Vital Signs Temperature: 98.0 F Blood Pressure: 109/56 Pulse: 83 Respirations: 18 Pulse Ox (%): 98 - Physical Exam General: Alert, In no apparent distress, Cooperative HEENT: Atraumatic Neck: Supple Respiratory: Clear to auscultation bilaterally, Normal air movement Cardiovascular: Normal pulses, Regular rate/rhythm Gastrointestinal: No masses, No rebound, No guarding Musculoskeletal: Other (Large hematoma noted to the right axillary area. Multiple areas of bruising noted to the right chest and flank region.) Neurological: Normal speech, Normal strength at 5/5 x4 extr, Normal tone, Normal affect - Studies Medications List Reviewed: Yes Assessment & Plan Discharge Plan: Transfer Plan to discharge in: 24 Hours Physician Review Additional Text: Impression: Large right-sided axillary hematoma likely related to trauma complicated with acute anemia with thrombocytopenia Head and neck cancer with metastasis to the liver Plan: Case discussed at length with hematology. Patient requires transfer to higher level care center for possible CV surgery evaluation and treatment. Other consideration would be interventional radiology. This would be to further evaluate the hematoma. Hematology suspects that patient is still bleeding and would require evacuation. This will need to be done at a higher level care center. Patient currently in process of transfer. Awaiting for bed. Patient had received multiple units of blood, FFP and cryoprecipitate. Continue to monitor hemoglobin and platelet closely. Time Spent Managing Pts Care (In Minutes): 55
[2019-01-15 17:49] LABS: Hematocrit 21.5 % (39.6-49.0); MPV 9.7 fL (7.6-11.3); RBC Red Blood Cell Count 2.37 M/uL (4.33-5.43)
[2019-01-15 17:51] LABS: Absolute Lymphocytes (CBC) 1.4 K/uL (0.7-4.9); Absolute Neutrophil 9.2 K/uL (1.8-8.0); Basophils % 0.5 % (0-1.3); Eosinophils % 4.2 % (0-4.4); Lymphocytes % 11.1 % (15.3-44.8); Monocytes % 12.2 % (3.3-12.3)
[2019-01-15 17:52] LABS: Absolute Monocytes 1.6 K/uL (0.1-1.3)
--- NOTE | 2019-01-15 18:02 | P.PN ---
Date of Service: 01/15/19 (Hem/Onc) Pt seen today as a follow up. Ecchymoses has expanded through the right lateral chest and abd wall. He denies pain on the bruise but does have some right shoulder pain for which he is taking tylenol#3 with relief. H ehas had atleast 4 units PRBC, 2 cryoprecipitate and 4 FFP. Denies any bleeding or oozing from any other site. NO fevers, chills, changes in bowel/ bladder habits. Denies abd pain, SCHWARTZ, chest pains, sob a 10 point ROS was done and pertienent points as in HPI. Vitals stable EXAMINATION: General Appearance: Well developed, alert, cooperative, appears to be in no acute distress. Skin, Hair & Nails: Large Hematoma ++ right axillary hematoma atleast 10-12 cm diameter, with diffuse ecchymoses right lateral thoracic and abdominal wall- warm, non tender. No open wounds. Few small bruises in the thighs Head: normocephalic, atraumatic. Eyes: anicteric, no injection of conjunctivae. Ears: hearing grossly intact. Nose: nares patent. Throat: no erythema, no exudate. Neck: neck supple, without lymphadenopathy. Respiratory: good respiratory effort, clear to auscultation, no wheezing. Cardiovascular: regular rate and rhythm, no murmurs, no cyanosis. Abdomen: bowel sounds present and equal in all four quadrants, abdomen is soft, nondistended, no masses, no hepatosplenomegaly. Peripheral Vascular: no pedal edema. Musculoskeletal: normal gait, normal posture, 5/5 strength through upper extremities. Neurological: AAOx3, CN II-XII intact, Strength symmetric and intact throughout Labs: Hb 7.1 plt 108 PT 14 Fb 169 LDH ~[address] ~%% Total Bili 2.5/ direct 1.3/ EMERSON negative few rare schistocytes on smear PROBLEMS: 1. Spontaneous Ecchymoses of unclear origin: It is possible the bruise may be secondary to recent ?trauma. Unclear bleeding source. But given mild PT elevation, low fibrinogen, and thrombocytopenia, I am concerned about DIC due to underlying extensive metastatic disease (liver and bone mets). Significant expansion of the bruise since the last 2 days and huge hematoma right pectoralis. Hb though stable, has has not improved even after multiple units of prbc indicating either active slow bleeding/ and or DIC. Pt may need surgical/ or IR exploration to evaluate and control the bleeding source/ possibly evaluate the hematoma. The hematoma is causing compression of the vasculature as well and also causing consumptive coagulopathy. Due to liver metastasis, it is possible he is deficient in coagulation factors and may have an underlying coagulopathy. He is being transfused accordingly to maintain hemodynamic stability. Awaiting transfer to a tertiary setting. I also discussed with his Oncologist, Dr Chris, and also Dr Carranza at [facility] who today who also obliged to help with transfer. For now, recommend, transfuse FFP if actively bleeding to supplement coagulation factors. If bleeding and fibrinogen level less than 100, recommend cryoprecipitate as well. Transfuse PRBC to keep Hb >8gm Monitor cbc and coagulation studies (PT,PTT, Fibrinogen) q 8-12h. 2. 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 I will follow closely and please do not hesitate to contact me should there be any concerns or questions.
[2019-01-15 18:26] LABS: Protime INR 1.3
[2019-01-16] MEDS ORDERED: FUROSEMIDE 20 MG/ 2ML VIAL ONE (00:13)
[2019-01-16] MEDS ORDERED: FUROSEMIDE 20 MG/ 2ML VIAL IV ONE (02:27)
[2019-01-16] MEDS: CODEINE 30MG/APAP 300MG TAB PO PRN ×3 (04:13→14:41)
[2019-01-16 06:32] LABS: Hematocrit 24.4 % (39.6-49.0)
[2019-01-16] MEDS: DOCUSATE NA 100 MG CAP PO SCH (08:17)
[2019-01-16 09:03] LABS: Potassium 4.3 mmol/L (3.5-5.1)
--- NOTE | 2019-01-16 09:12 | P.PN ---
Subjective Date of Service: 01/16/19 Chief Complaint: Spontaneous hemorrhage Subjective: Other (Patient doing well at this time. No significant shortness of breath, chest pain.) Physical Examination - Vital Signs Temperature: 98.1 F Blood Pressure: 105/54 Pulse: 76 Respirations: 15 Pulse Ox (%): 98 - Physical Exam General: Alert, In no apparent distress, Cooperative HEENT: Atraumatic Neck: Supple Respiratory: Clear to auscultation bilaterally, Normal air movement Cardiovascular: Normal pulses, Regular rate/rhythm Gastrointestinal: Normal bowel sounds, Soft and benign, Non-distended, No rebound, No guarding Integumentary: Other (Large subcutaneous/intramuscular hematoma noted to the right axillary region. No significant change noted. Ecchymosis noted to the area and to the right flank region.) Neurological: Normal speech, Normal strength at 5/5 x4 extr, Normal tone, Normal affect - Studies Medications List Reviewed: Yes Assessment & Plan Discharge Plan: Transfer Plan to discharge in: 24 Hours Physician Review Additional Text: Impression: Large right-sided axillary hematoma with multiple areas of muscular thickening/ swelling (CT 01/12/2019 showing worsening bruising/edematous stranding in the subcutaneous fatty tissues in the upper right chest/shoulder region; 6 x 4 and 6 x 3 cm hematoma in the inferior right axillary area; Pectoralis musculature is thickened and edematous; Subscapularis intramuscular hematoma identified; Trapezius muscle thickening and edema also noted; and Latissimus dorsi muscle is thicken and edematous) likely related to trauma vs cancer vs other complicated with acute anemia and thrombocytopenia Head and neck cancer with metastasis to the liver Plan: Large right-sided axillary hematoma with multiple areas of muscular thickening/ swelling (CT 01/12/2019 showing worsening bruising/edematous stranding in the subcutaneous fatty tissues in the upper right chest/shoulder region; 6 x 4 and 6 x 3 cm hematoma in the inferior right axillary area; Pectoralis musculature is thickened and edematous; Subscapularis intramuscular hematoma identified; Trapezius muscle thickening and edema also noted; and Latissimus dorsi muscle is thicken and edematous) likely related to trauma vs cancer vs other complicated with acute anemia and thrombocytopenia Head and neck cancer with metastasis to the liver: Case discussed at length with hematology. Surgery locally recommends no surgical intervention at this time. Will discuss with surgery again today. Patient requires transfer to higher level care center for further evaluation with CV surgery and interventional radiology. Hematoma may require evacuation if anemia persists. Further evaluation for continued bleeding needs to be evaluated and addressed by CV surgery/interventional radiology. Still waiting to hear on possible transfer approval/acceptance. Patient has received multiple units of packed red blood cells, FFP and cryoprecipitate. Patient received 2 units of packed red blood cells last night. Recheck hemoglobin this a.m. stable. Will recheck hemoglobin again today at 12 noon. Continue monitor CBC and coagulation factors. Hematology plans to speak to CV surgery up in [place] to help expedite transfer. Time Spent Managing Pts Care (In Minutes): 55
[2019-01-16 12:33] LABS: Absolute Lymphocytes (CBC) 1.7 K/uL (0.7-4.9); Absolute Neutrophil 11.7 K/uL (1.8-8.0); Basophils % 0.4 % (0-1.3); Eosinophils % 3.2 % (0-4.4); Hematocrit 26.8 % (39.6-49.0); Lymphocytes % 10.4 % (15.3-44.8); MPV 9.2 fL (7.6-11.3); Monocytes % 12.3 % (3.3-12.3); RBC Red Blood Cell Count 2.97 M/uL (4.33-5.43)
[2019-01-16] MEDS: HYDROMORPHONE HCL 1 MG/ML INJ IV PRN (12:39)
[2019-01-16 16:12] VITALS: BP 113/51; TEMP 99
[2019-01-16 16:31] VITALS: O2SAT 98
--- NOTE | 2019-01-16 17:37 | P.DS ---
Admission Date: 01/11/19 Discharge Date: 01/16/19 Primary Care Provider: Dr. Alexander; Hematology/Onc-Dr. Rea Disposition: ROUTINE DISCHARGE Discharge Condition: GOOD Reason for Admission: Spontaneous hemorrhage Consultations: Onc/Hem-Dr. Rea Surgery-Dr. Lund Procedures: CT scan: COMPARISON: CT chest and abdomen imaging November 2018 TECHNIQUE: Dynamically enhanced 5 mm thick images of the chest were obtained during administration of 100 mL non-ionic IV contrast. All CT scans are performed using dose optimization technique as appropriate and may include automated exposure control or mA/KV adjustment according to patient size. FINDINGS: No new mass or infiltrate in the lung parenchyma. Two small right lower lobe pulmonary nodules previously detailed are stable. Minimal scarring changes are present. No pleural effusion or pleural thickening. No pneumothorax. Coronary artery calcifications are present. No pericardial thickening or effusion. No abnormal mediastinal or hilar mass or lymphadenopathy seen. Limited imaging of the upper abdomen shows a heterogeneous attenuation pattern throughout the liver parenchyma. Small amount of ascites is present. Heterogeneous poorly demarcated low-density lesion in the posterior right lobe. Patient has known hepatic metastatic disease. This study is not adequate for evaluation of growth for improvement. Right-sided Port-A-Cath is in place. No abnormality in the tissue surrounding the Port-A-Cath. Patient has previously detailed bony metastatic disease. Sclerotic bone changes are stable over the short interval from the prior CT study. Extensive hemorrhagic changes are present in the fatty tissues of the right axilla. Right subclavian artery enhances normally. No extravasation of contrast from the arterial tree. Right axillary vein is not opacified to assess any venous side extravasation. There is significant enlargement of the subscapularis muscle belly from probable intramuscular hemorrhage. Deltoid musculature is thickened. Pectoralis muscles are not abnormally enlarged. Teres minor and major muscles also thickened. No trauma history is noted. This may be spontaneous hemorrhagic change due to anticoagulation therapy or malignancy related coagulation abnormality. IMPRESSION: Significant hemorrhagic changes involving the right axillary fatty tissues and right shoulder musculature. Findings extend inferiorly along the latissimus dorsi musculature. No extravasation of contrast from the axillary artery. The axillary vein is not opacified by contrast on this examination so no venous side assessment of active extravasation can be made. No trauma history is indicated. This may be spontaneous hemorrhage due to anticoagulation therapy or malignancy related coagulation abnormality. No abnormalities identified regarding the Port-A-Cath. No mediastinal, hilar or lung parenchymal acute process. Repeat CT scan: COMPARISON: CT January 09 TECHNIQUE: Dynamically enhanced 5 mm thick images of the chest were obtained during administration of 100 mL non-ionic IV contrast. All CT scans are performed using dose optimization technique as appropriate and may include automated exposure control or mA/KV adjustment according to patient size. FINDINGS: No new lung parenchymal process. No pleural based mass. Trace pleural fluid in each dependent lung base. No pneumothorax. No new mediastinal or hilar finding. No new bone finding. There is significantly more bruising or edematous stranding in the subcutaneous fatty tissues in the upper right chest and shoulder region. This is anterior, lateral and posterior in location. There are new 6 x 4 cm and 6 x 3 cm hematoma is in the inferior right axilla. Pectoralis musculature is more thickened and edematous. This could be edema or a minimal amount of intramuscular hemorrhage. A defined hematoma within the muscle is not seen. Subscapularis intramuscular hematoma has enlarged. Trapezius muscle thickening and edema also progressive. Thickening and edema present in the latissimus dorsi muscle as well. No arterial side extravasation contrast. Right chest and shoulder venous side assessment is more limited. There does appear to be dilation enlargement of the brachial vein possibly from extrinsic compression of the axillary vein from the hematoma changes. IMPRESSION: Progression of the hemorrhagic changes to the right shoulder and upper right chest. New 6 centimeter hematomas are present in the right axilla with enlargement of the intramuscular subscapularis muscle hematoma. General enlargement of the right shoulder region musculature likely from edema. No additional defined intramuscular hematomas. Significantly more contusion and edema changes in the subcutaneous fatty tissues of the right shoulder and upper right chest. Brachial vein appears enlarged possibly due to extrinsic compression of the axillary vein. No arterial side extravasation. Medical Problem List: Large right-sided axillary hematoma with multiple areas of muscular thickening/ swelling (CT 01/12/2019 showing worsening bruising/edematous stranding in the subcutaneous fatty tissues in the upper right chest/shoulder region; 6 x 4 and 6 x 3 cm hematoma in the inferior right axillary area; Pectoralis musculature is thickened and edematous; Subscapularis intramuscular hematoma identified; Trapezius muscle thickening and edema also noted; and Latissimus dorsi muscle is thicken and edematous) likely related to trauma vs cancer vs other complicated with acute anemia and thrombocytopenia Head and neck cancer with metastasis to the liver Brief History of Present Illness: 63-year-old male with history of squamous cell carcinoma of the head and neck with metastasis to the liver. Patient noted pain and swelling to the right axilla. Bruising noted. Patient was evaluated in the emergency room. CT chest showed significant hemorrhagic changes involving the right axillary fatty tissue and right shoulder musculature. The patient was admitted for further evaluation. Hospital Course: Patient presented with right axillary pain, swelling and ecchymosis. Patient with underlying head and neck squamous cell cancer with metastasis to the liver. Patient found have hemorrhagic changes to the right axilla. Patient was admitted for further evaluation. Consultations included oncology/ hematology and surgery. During the course of his stay, repeat CT scan revealed large right axillary hematoma with multiple areas of muscular thickening and swelling. Repeat CT scan showed worsening bruising/edematous stranding in the subcutaneous fatty tissues in the right upper chest/shoulder region; 6 x 4 and 6 x 3 cm hematoma in the inferior right axillary area; Pectoralis musculature is thickened and edematous; Subscapularis intramuscular hematoma identified; trapezius muscle thickening and edema; and latissimus dorsi muscle thickened and edematous. During his stay patient received multiple transfusions of packed red blood cells, cryoprecipitate and FFP. Surgery evaluated the patient. No surgical intervention was required. During the course of his stay hematology recommended transfer for interventional radiology evaluation and possible CV surgery. Transfer was not successful. Multiple attempts were made. During this process his hemoglobin stabilizes. At discharge hemoglobin remained stable at 8.9. Patient without any significant fever, chills, chest pain, erythema to the area of the axilla. Case rediscuss with surgery and hematology/oncology. No need for transfer at this time since hemoglobin remained stable. Patient will be discharged home. He is to monitor for fever, tachycardia, worsening pain to the axillary area, and swelling/increase ecchymosis to the axillary region. If this occurs he is to return to the ER for further evaluation. Patient is at risk for infected hematoma. Patient understands this. This was discussed in detail with patient and . Hematology/oncology plans to send the patient to interventional radiology and/ or CV surgery soon. She will try to get him seen by specialty care within the next week. Patient doing well at discharge. Patient understands the risks and plan of care. At discharge patient may continue with his current medication. Recommend no use of nonsteroidal anti-inflammatories. Patient may use Tylenol for pain. Vital Signs/Physical Exam: Temp Pulse Resp BP Pulse Ox 99.0 F 80 20 113/51 L 98 01/16/19 16:00 01/16/19 16:00 01/16/19 16:00 01/16/19 16:00 01/16/19 16:00 General: Alert, In no apparent distress, Oriented x3, Cooperative HEENT: Atraumatic Neck: Supple Respiratory: Clear to auscultation bilaterally, Normal air movement Cardiovascular: Normal pulses, Regular rate/rhythm Gastrointestinal: Normal bowel sounds, Soft and benign, Non-distended, No tenderness, No masses, No rebound, No guarding Integumentary: Other (Ecchymoses to the right flank. Hematoma noted to the right axillary region. Unchanged.) Laboratory Data at Discharge: WBC 15.9 K/uL (4.3-10.9) H D 01/16/19 12:05 Hgb 8.9 g/dL (13.6-17.9) L 01/16/19 12:05 Hct 26.8 % (39.6-49.0) L 01/16/19 12:05 Plt Count 130 K/uL (152-406) L D 01/16/19 12:05 PT 15.2 SECONDS (9.5-12.5) H 01/15/19 17:05 INR 1.30 01/15/19 17:05 APTT 27.9 SECONDS (24.3-36.9) 01/15/19 17:05 Sodium 134 mmol/L (136-145) L 01/16/19 08:24 Potassium 4.3 mmol/L (3.5-5.1) 01/16/19 08:24 BUN 17 mg/dL (7-18) 01/16/19 08:24 Creatinine 1.00 mg/dL (0.55-1.3) 01/16/19 08:24 Glucose 103 mg/dL (74-106) 01/16/19 08:24 Total Bilirubin 2.5 mg/dL (0.2-1.0) H 01/15/19 10:50 AST 106 U/L (15-37) H 01/14/19 06:00 ALT 33 U/L (12-78) 01/14/19 06:00 Alkaline Phosphatase 267 U/L (45-117) H 01/14/19 06:00 Home Medications: Calcium Carbonate/Vitamin D3 [Calcium 500 mg-Vit D3 600 Unit] 2 tab PO DAILY Cholecalciferol (Vitamin D3) [Vitamin D3] 1 cap PO DAILY 01/09/19 Esomeprazole Mag Trihydrate [Nexium] 1 cap PO DAILY 01/09/19 LORazepam [Ativan*] 1 tab PO Q6H PRN 01/09/19 Slow Mag 71.5 mg PO DAILY 01/09/19 Patient Discharge Instructions: 1. Patient will follow up with hematology/ oncology within 1 week. Recommend to recheck CBC within 1 week. Hematology/ oncology plans to have patient seen by interventional radiology and/or CV surgery soon. 2. Recommend no use of nonsteroidal anti-inflammatories. 3. Patient is to monitor for fever, tachycardia, increased pain to the right axilla , increase ecchymosis and swelling to the right axilla. If symptoms occur he is to come to the ER for further evaluation. Diet: Regular Activity: Fall precautions Time spent managing pt's care (in minutes): 55
== END 2019-01-16 18:44 | disposition home or self-care (01) | DRG 557 ==
LOC: ER 16:32 → ERHOLD 21:49 → INTOOBSV 21:49 → 4TH 22:26 → OBSVTOIN 01-11 16:32
PROVIDERS: ADMIT Hospitalist; ATTEND Family Medicine
PROC: 30233K1 Transfusion of Nonautologous Frozen Plasma into Peripheral Vein, Percutaneous Approach (ICD-10-PCS; principal; 2019-01-11)
PROC: 30233N1 Transfusion of Nonautologous Red Blood Cells into Peripheral Vein, Percutaneous Approach (ICD-10-PCS; 2019-01-12)
PROC: 30233M1 Transfusion of Nonautologous Plasma Cryoprecipitate into Peripheral Vein, Percutaneous Approach (ICD-10-PCS; 2019-01-12)
DX: M62.89 Other specified disorders of muscle (principal); D65 Disseminated intravascular coagulation [defibrination syndrome]; C49.0 Malignant neoplasm of connective and soft tissue of head, face and neck; C78.7 Secondary malignant neoplasm of liver and intrahepatic bile duct; C79.51 Secondary malignant neoplasm of bone; I87.1 Compression of vein; M79.81 Nontraumatic hematoma of soft tissue; D64.9 Anemia, unspecified; T45.1X5A Adverse effect of antineoplastic and immunosuppressive drugs, initial encounter; Y92.019 Unspecified place in single-family (private) house as the place of occurrence of the external cause; S40.021A Contusion of right upper arm, initial encounter; D69.6 Thrombocytopenia, unspecified; X58.XXXA Exposure to other specified factors, initial encounter; Y93.89 Activity, other specified
CPT/HCPCS: 36415; 36430; 71260; 72192; 73700; 80048; 80053; 80076; 81003; 81015; 82247; 82248; 82607; 82746; 83540; 83615; 85014; 85018; 85025; 85044; 85379; 85384; 85610; 85730; 86850; 86880; 86900; 86901; 87086; 87088; 99285; G0378; J1170; J1940; J2270; J7030; P9012; P9016; P9040; P9059; Q9967